=== PATIENT | female | born 1950 | race Caucasian/White ===

== ENCOUNTER 2016-05-12 17:57 | Inpatient (IN) | payer MEDICARE, BC ==
[~2016-05-12] VITALS: Ht 157.5 cm; Wt 67.1 kg
[~2016-05-12 17:57] MED LIST: MIRT15TA PO; SIMV40TA2 PO; TEMA15CA PO
[2016-05-12] MEDS ORDERED: CEFTRIAXONE 1GM BAG (ER ONLY) 50 ML IV ONE ×2 (20:00→20:01)
[2016-05-12] MEDS ORDERED: IV NS 0.9% 1,000 ML BAG IV ONE ×2 (20:00→23:00)
[2016-05-12] MEDS ORDERED: IV NS 0.9% 1,000 ML ONE (20:02)
[2016-05-12] MEDS ORDERED: IV SET PRIMARY 1 EA INFUS.SET MC ONE (20:02)
[2016-05-12 20:06] LABS: BASOPHILS # (AUTO) 0.3 /CMM (0.0-0.2); BASOPHILS % (AUTO) 3.2 % (0.0-2.0); DIFF TOTAL % 100 %; EOSINOPHILS # (AUTO) 0.2 /CMM (0.0-0.7); EOSINOPHILS % (AUTO) 1.9 % (0.0-6.0); HEMATOCRIT 42 % (33-45); HEMOGLOBIN 13.9 g/dL (11.5-14.8); LYMPHOCYTES # (AUTO) 2.2 /CMM (0.8-4.8); LYMPHOCYTES % (AUTO) 23.5 % (20.0-44.0); MEAN CORPUSCULAR HEMOGLOBIN 29 PG (26.0-33.0); MEAN CORPUSCULAR HGB CONC 33 g/dl (31.0-36.0); MEAN CORPUSCULAR VOLUME 87 fL (82-100); MONOCYTES # (AUTO) 0.9 /CMM (0.1-1.30); MONOCYTES % (AUTO) 9.7 % (2.0-12.0); NEUTROPHILS # (AUTO) 5.6 /CMM (1.8-8.9); NEUTROPHILS % (AUTO) 61.7 % (43.0-81.0); PLATELET COUNT (AUTO) 297 /CMM (150-450); RED BLOOD CELL COUNT(AUTO) 4.78 MIL/uL (4.0-5.2); WHITE BLOOD COUNT (AUTO) 9.2 K/uL (4.3-11.0)
[2016-05-12 20:14] LABS: CALCIUM, SERUM 8.8 mg/dL (8.5-10.1); CREATININE 0.9 mg/dL (0.6-1.3); POTASSIUM 3.6 mmol/L (3.5-5.1)
[2016-05-12 20:20] LABS: ALBUMIN 3.2 g/dL (3.4-5.0); BILIRUBIN,DIRECT 0.1 mg/dL (0.0-0.2); BILIRUBIN,TOTAL 0.3 mg/dL (0.2-1.0); INDIRECT BILIRUBIN 0.2 mg/dL (0.0-1.1); TOTAL PROTEIN, SERUM 7.5 g/dL (6.4-8.2)
[2016-05-12 20:54] LABS: KETONES,URINE Negative (NEGATIVE); LEUKOCYTE ESTERASE ,URINE Large (NEGATIVE); PH,URINE 6.5 (5.0-8.0)
[2016-05-12 21:04] LABS: ADD UA MICROSCOPIC YES
[2016-05-12 21:05] LABS: ADD URINE CULTURE YES; WBC,URINE TOO NUMEROUS TO COUN /HPF (0-3)
[2016-05-12 21:20] VITALS: BP 93/66
[2016-05-12] MEDS ORDERED: IV SET PRIMARY PUMP SET 1 EA INFUS.SET MC ONE (22:48)
[2016-05-12] MEDS ORDERED: MORPHINE SULFATE INJ 2 MG/ML DISP.SYRIN IV PRN (23:00)
[2016-05-12] MEDS ORDERED: ACETAMINOPHEN 325 MG TABLET PO PRN (23:00)
[2016-05-12] MEDS ORDERED: LORAZEPAM INJ 2 MG/ML VIAL IVP PRN (23:00)
[2016-05-12] MEDS ORDERED: ONDANSETRON HCL/PF 4 MG/2 ML VIAL IVP PRN (23:00)
[2016-05-12] MEDS ORDERED: ZOLPIDEM TARTRATE 5 MG TABLET PO PRN (23:00)
[2016-05-12] MEDS ORDERED: LEVOFLOXACIN 750 MG /D5W 150ML 150 ML IV ONE (23:04)
[2016-05-12] MEDS ORDERED: SECONDARY IV SET 1 EA INFUS.SET MC ONE (23:21)
[2016-05-12] MEDS: LEVOFLOXACIN 750 MG /D5W 150ML 150 ML IV SCH (23:21)
[2016-05-13] VITALS (7 sets, daily range): BP systolic 92–123; BP diastolic 52–70
[2016-05-13 00:44] LABS: ALANINE AMINOTRANSFERASE 16 U/L (12-78); ASPARTATE AMINOTRANSFERASE 12 U/L (15-37); BILIRUBIN,DIRECT 0.1 mg/dL (0.0-0.2); BILIRUBIN,TOTAL 0.3 mg/dL (0.2-1.0); INDIRECT BILIRUBIN 0.2 mg/dL (0.0-1.1); TOTAL PROTEIN, SERUM 7.1 g/dL (6.4-8.2)
[2016-05-13 00:53] LABS: LACTIC ACID 2.1 mmol/L (0.4-2.0)
[2016-05-13 01:25] LABS: *LACTIC ACID REFLEX FLAG YES
[2016-05-13 06:43] LABS: ALBUMIN 2.7 g/dL (3.4-5.0); BASOPHILS % (AUTO) 0.2 % (0.0-2.0); BILIRUBIN,TOTAL 0.4 mg/dL (0.2-1.0); CALCIUM, SERUM 8.2 mg/dL (8.5-10.1); CREATININE 0.8 mg/dL (0.6-1.3); DIFF TOTAL % 100 %; EOSINOPHILS # (AUTO) 0.1 /CMM (0.0-0.7); EOSINOPHILS % (AUTO) 1.6 % (0.0-6.0); HEMATOCRIT 41 % (33-45); HEMOGLOBIN 12.9 g/dL (11.5-14.8); LYMPHOCYTES # (AUTO) 0.8 /CMM (0.8-4.8); LYMPHOCYTES % (AUTO) 9.2 % (20.0-44.0); MEAN CORPUSCULAR HEMOGLOBIN 29 PG (26.0-33.0); MEAN CORPUSCULAR HGB CONC 32 g/dl (31.0-36.0); MEAN CORPUSCULAR VOLUME 92 fL (82-100); MONOCYTES # (AUTO) 0.6 /CMM (0.1-1.30); NEUTROPHILS # (AUTO) 6.8 /CMM (1.8-8.9); PLATELET COUNT (AUTO) 240 /CMM (150-450); POTASSIUM 3.7 mmol/L (3.5-5.1); RED BLOOD CELL COUNT(AUTO) 4.45 MIL/uL (4.0-5.2); TOTAL PROTEIN, SERUM 6.7 g/dL (6.4-8.2); WHITE BLOOD COUNT (AUTO) 8.3 K/uL (4.3-11.0)
[2016-05-13] MEDS ORDERED: MIRTAZAPINE 15 MG TABLET PO SCH (18:00)
[2016-05-13] MEDS: SIMVASTATIN 40 MG TABLET PO SCH ×2 (19:16→19:17)
[2016-05-14] MEDS ORDERED: IV SET PRIMARY PUMP SET 1 EA INFUS.SET MC ONE ×2 (00:15→00:16)
[2016-05-14] MEDS ORDERED: SECONDARY IV SET 1 EA INFUS.SET MC ONE (00:15)
[2016-05-14] MEDS ORDERED: IV NS 0.9% 250 ML IV ONE (00:15)
[2016-05-14] MEDS: LEVOFLOXACIN 750 MG /D5W 150ML 150 ML IV SCH (00:20)
[2016-05-14 06:48] LABS: BASOPHILS % (AUTO) 0.4 % (0.0-2.0); DIFF TOTAL % 100 %; EOSINOPHILS # (AUTO) 0.2 /CMM (0.0-0.7); EOSINOPHILS % (AUTO) 2.9 % (0.0-6.0); HEMATOCRIT 37 % (33-45); HEMOGLOBIN 12.1 g/dL (11.5-14.8); LYMPHOCYTES # (AUTO) 1.5 /CMM (0.8-4.8); MEAN CORPUSCULAR HEMOGLOBIN 29 PG (26.0-33.0); MEAN CORPUSCULAR HGB CONC 33 g/dl (31.0-36.0); MEAN CORPUSCULAR VOLUME 88 fL (82-100); MONOCYTES # (AUTO) 0.6 /CMM (0.1-1.30); MONOCYTES % (AUTO) 9.2 % (2.0-12.0); NEUTROPHILS # (AUTO) 4.4 /CMM (1.8-8.9); NEUTROPHILS % (AUTO) 65.5 % (43.0-81.0); PLATELET COUNT (AUTO) 267 /CMM (150-450); RED BLOOD CELL COUNT(AUTO) 4.22 MIL/uL (4.0-5.2); WHITE BLOOD COUNT (AUTO) 6.7 K/uL (4.3-11.0)
[2016-05-14 07:06] LABS: CALCIUM, SERUM 9.1 mg/dL (8.5-10.1); CREATININE 0.9 mg/dL (0.6-1.3); POTASSIUM 3.8 mmol/L (3.5-5.1)
[2016-05-14 08:00] VITALS: BP 93/61
[2016-05-14 16:00] VITALS: BP 108/68
== END 2016-05-14 17:00 | disposition home or self-care (01) | DRG 689 ==
LOC: ER 17:59 → TELE 21:03 → MED 05-13 08:30
PROVIDERS: ADMIT Internal Medicine; ATTEND Internal Medicine
DX: N39.0 Urinary tract infection, site not specified (principal); G92 Toxic encephalopathy; E43 Unspecified severe protein-calorie malnutrition; R53.2 Functional quadriplegia; C79.31 Secondary malignant neoplasm of brain; E44.0 Moderate protein-calorie malnutrition; E87.2 Acidosis; Z85.118 Personal history of other malignant neoplasm of bronchus and lung; Z85.3 Personal history of malignant neoplasm of breast; Z92.3 Personal history of irradiation; Z87.440 Personal history of urinary (tract) infections; E78.5 Hyperlipidemia, unspecified; Z87.891 Personal history of nicotine dependence; G30.9 Alzheimer's disease, unspecified; F02.80 Dementia in other diseases classified elsewhere, unspecified severity, without behavioral disturbance, psychotic disturbance, mood disturbance, and anxiety
CPT/HCPCS: 36415; 71010-TC; 80048-TC; 80053-TC; 80076-TC; 81000-TC; 83605-TC; 83690-TC; 85025-TC; 87040-TC; 87081-TC; 87086-TC; 93307-TC; 97001-TC; 97003-TC; 97116-TC; 97530-TC; A4606; J0696; J1956; J7030; J7050; Z7610

== ENCOUNTER 2016-11-03 09:40 | Outpatient (CLI) | payer MEDICARE, BC ==
[2016-11-03] MEDS ORDERED: ETHYL CHLORIDE SPRAY 1 EA BOTTLE TP ONE (11:30)
== END 2016-11-03 23:59 | disposition home health service (06) ==
LOC: WOU 09:40
PROVIDERS: ATTEND Podiatrist Foot & Ankle Surgery
DX: L60.0 Ingrowing nail (principal); R60.0 Localized edema; L03.032 Cellulitis of left toe
CPT/HCPCS: 11730; A6402; J3490

== ENCOUNTER 2016-11-13 10:03 | Outpatient (CLI) | payer MEDICARE, BC | END 2016-11-13 23:59 | disposition home or self-care (01) | LOC: WOU 10:03 | PROVIDERS: ATTEND Podiatrist Foot & Ankle Surgery | DX: Z09 Encounter for follow-up examination after completed treatment for conditions other than malignant neoplasm (principal); Z99.3 Dependence on wheelchair | CPT/HCPCS: G0463 ==

== ENCOUNTER 2016-11-22 11:15 | Emergency (ER) | payer MEDICARE, BC ==
[~2016-11-22] VITALS: Ht 160 cm; Wt 68.0 kg
--- NOTE | 2016-11-22 11:20 | NUR ---
BIBCG FROM HOME FOR PAIN IN URINATION SINCE WEDNESDAY. DENIES HEMATURIA HOWEVER SHE REPORTED HAVING CLOUDY URINE. PATIENT IS AEBRILE AT THIS TIME. IN NO APPARENT DISTRESS. GOWNED PT AND PLACED ON TELE MONITOR. VSS
[2016-11-22] MEDS ORDERED: ONDANSETRON HCL/PF 4 MG/2 ML VIAL ONE (11:38)
[2016-11-22] MEDS ORDERED: PHENAZOPYRIDINE HCL 200 MG TABLET ONE (11:39)
--- NOTE | 2016-11-22 11:53 | NUR ---
RADIOLOGIST AT FOR BLOOD DRAW
--- NOTE | 2016-11-22 11:53 | NUR ---
IV ACCESS STARTED. PT MEDICATED ORDERED.
[2016-11-22] MEDS ORDERED: ONDANSETRON HCL/PF 4 MG/2 ML VIAL IVP ONE (12:00)
[2016-11-22] MEDS ORDERED: IV NS 0.9% 1,000 ML BAG IV ONE (12:00)
[2016-11-22] MEDS ORDERED: PHENAZOPYRIDINE HCL 200 MG TABLET PO ONE (12:00)
--- NOTE | 2016-11-22 12:12 | NUR ---
URINE SAMPLE SENT TO LAB
[2016-11-22 12:13] LABS: BASOPHILS # (AUTO) 0.1 /CMM (0.0-0.2); BASOPHILS % (AUTO) 1.1 % (0.0-2.0); EOSINOPHILS # (AUTO) 0.1 /CMM (0.0-0.7); EOSINOPHILS % (AUTO) 1.9 % (0.0-6.0); HEMATOCRIT 43 % (33-45); HEMOGLOBIN 14.3 g/dL (11.5-14.8); LYMPHOCYTES # (AUTO) 1.5 /CMM (0.8-4.8); LYMPHOCYTES % (AUTO) 20.2 % (20.0-44.0); MEAN CORPUSCULAR HEMOGLOBIN 29 PG (26.0-33.0); MEAN CORPUSCULAR HGB CONC 33 g/dl (31.0-36.0); MEAN CORPUSCULAR VOLUME 89 fL (82-100); MONOCYTES # (AUTO) 0.7 /CMM (0.1-1.30); MONOCYTES % (AUTO) 9.3 % (2.0-12.0); NEUTROPHILS # (AUTO) 5.1 /CMM (1.8-8.9); NEUTROPHILS % (AUTO) 67.5 % (43.0-81.0); PLATELET COUNT (AUTO) 322 /CMM (150-450); RDW COEFFICIENT OF VARIATION 14.2 (11.5-15.0); RED BLOOD CELL COUNT(AUTO) 4.88 MIL/uL (4.0-5.2); WHITE BLOOD COUNT (AUTO) 7.5 K/uL (4.3-11.0)
[2016-11-22 12:25] LABS: CALCIUM, SERUM 8.8 mg/dL (8.5-10.1); POTASSIUM 3.7 mmol/L (3.5-5.1)
[2016-11-22 12:30] LABS: ALBUMIN 3.2 g/dL (3.4-5.0); BILIRUBIN,DIRECT 0.1 mg/dL (0.0-0.2); BILIRUBIN,TOTAL 0.4 mg/dL (0.2-1.0); TOTAL PROTEIN, SERUM 7.3 g/dL (6.4-8.2)
[2016-11-22 12:40] LABS: APPEARANCE,URINE Clear (CLEAR); BILIRUBIN,URINE Negative (NEGATIVE); BLOOD, URINE Moderate Ery/uL (NEGATIVE); COLOR,URINE Yellow (YELLOW); KETONES,URINE Negative (NEGATIVE); LEUKOCYTE ESTERASE ,URINE Moderate (NEGATIVE); NITRITE, URINE Positive (NEGATIVE); PROTEIN,URINE >=300 mg/dl (NEGATIVE); UGLUCOSE Negative (NEGATIVE); UROBILINOGEN,URINE 0.2 EU/dL (0.2)
[2016-11-22 12:48] LABS: BACTERIA,URINE Many /HPF (None Seen); SQUAMOUS EPITHELIAL CELL,UR Few /HPF (None Seen); WBC,URINE 21-50 /HPF (0-3)
[2016-11-22] MEDS ORDERED: CEFTRIAXONE 1 G in IV D5W 50 ML IV ONE (13:00)
[2016-11-22] MEDS ORDERED: CEFTRIAXONE 1GM BAG (ER ONLY) 50 ML IV ONE (13:01)
[2016-11-22 13:19] VITALS: BP 104/72
--- NOTE | 2016-11-22 13:21 | NUR ---
Patient discharged to home in stable condition. Written and verbal after care instructions given. Patient verbalizes understanding of instruction.
[2016-11-23] MEDS ORDERED: DIPH25CA83 PO (11:45)
[2016-11-23] MEDS ORDERED: FAMO-131 PO (11:45)
[2016-11-23] MEDS ORDERED: CIPR-262 PO (11:45)
[2016-11-23] MEDS ORDERED: METH4TAB16 PO (11:45)
== END 2016-11-22 13:21 | disposition home or self-care (01) ==
LOC: ER 11:19
DX: N39.0 Urinary tract infection, site not specified (principal); F03.90 Unspecified dementia, unspecified severity, without behavioral disturbance, psychotic disturbance, mood disturbance, and anxiety; E78.00 Pure hypercholesterolemia, unspecified; Z91.048 Other nonmedicinal substance allergy status
CPT/HCPCS: 36415; 80048; 80076; 81001; 85025; 87077; 87086; 87186; 96361; 96365; 99284; A4606; J0696 ×2; J2405; J7030; J7060; 81000-TC; Z7610

== ENCOUNTER 2016-11-22 15:49 | Inpatient (IN) | payer MEDICARE, BC ==
[~2016-11-22] VITALS: Ht 162.6 cm; Wt 62.8 kg
--- NOTE | 2016-11-22 15:52 | NUR ---
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 PATIENT ALSO CO DIFFICULTY SWALLOWING. PER PATIENT SHE DID NOT EAT NOTR DRINK PRIOR THE INCIDENT. PT WAS IN ED EARLIER AND WAS MEDICATED FOR UTI. PATIENT IS ABLE TO SPEAK IN FULL SENTENCE AND IS SATING 95% ON ROOM AIR. APPEARS IN NO APPARENT DISTRESS. GOWNED PT AND PLACED ON TELE MONITOR. VSS
--- NOTE | 2016-11-22 16:08 | NUR ---
MD MANCERA AT BEDSIDE
[2016-11-22] MEDS ORDERED: FAMOTIDINE/PF INJ 20 MG/2 ML VIAL IV ONE ×3 (16:13→20:57)
[2016-11-22] MEDS ORDERED: methylPREDNISolone SOD SUCC 125 MG/2ML VIAL ONE (16:13)
[2016-11-22] MEDS ORDERED: diphenhydrAMINE HCL 50 MG/ML VIAL ONE ×2 (16:13→20:50)
--- NOTE | 2016-11-22 16:20 | NUR ---
MEDICATED PT ORDERED
[2016-11-22] MEDS ORDERED: methylPREDNISolone SOD SUCC 125 MG/2ML VIAL IV ONE (16:30)
[2016-11-22] MEDS ORDERED: diphenhydrAMINE HCL 50 MG/ML VIAL IV ONE (16:30)
--- NOTE | 2016-11-22 17:43 | NUR ---
RELATIVE TO TIA_ WESTLEY-- [phone]
[2016-11-22] MEDS ORDERED: CIPROFLOXACIN IV RTU 400 MG in PREMIX 1 EA IV STA (17:54)
[2016-11-22] MEDS ORDERED: CIPROFLOXACIN IV RTU 200 ML IV ONE (18:01)
--- NOTE | 2016-11-22 19:43 | NUR ---
REPORT GIVEN TO ARLEN KONG FOR CONTINUITY OF CARE
--- NOTE | 2016-11-22 19:46 | NUR ---
PT TRANSPPORTED TO TELE 1. VSS
--- NOTE | 2016-11-22 19:50 | NUR ---
RN MS INITIAL NOTE PT RECEIVED FROM ER WITH NO ACUTE DISTRESS. A/O X3 WITH SOME LANGUAGE BARRIER AT TIMES. PT ON RA WITH ADEQUATE 02 SATURATION. PT HAS LFA 20G THAT HURTS WHEN FLUSHED SO RIGHT WRIST 20G STARTED FOR MEDICATION USE. PT IS ABLE TO MAKE NEEDS KNOWN. SAFETY AND COMFORT MEASURES TO BE ENSURED AND WILL CONTINUE TO MONITOR FOR ANY CHANGES.
[2016-11-22 20:00] VITALS: BP 100/66
[2016-11-22] MEDS ORDERED: MAGNESIUM HYDROXIDE 30 ML UDC PO PRN (20:00)
[2016-11-22] MEDS ORDERED: ONDANSETRON HCL/PF 4 MG/2 ML VIAL IVP PRN (20:00)
[2016-11-22] MEDS ORDERED: ENOXAPARIN SODIUM 40 MG/0.4 ML DISP.SYRIN SQ SCH (20:00)
[2016-11-22] MEDS ORDERED: HYDROCODONE/APAP 5/325MG 1 EACH TABLET PO PRN (20:00)
[2016-11-22] MEDS ORDERED: ZOLPIDEM TARTRATE 5 MG TABLET PO PRN (20:00)
[2016-11-22] MEDS ORDERED: ACETAMINOPHEN 325 MG TABLET PO PRN (20:00)
[2016-11-22] MEDS ORDERED: Z GUARD REMEDY 2 OZ OINT TP PRN (20:00)
[2016-11-22 20:29] VITALS: BP 100/66
[2016-11-22] MEDS ORDERED: TEMAZEPAM 15 MG CAPSULE PO PRN (20:30)
[2016-11-22] MEDS ORDERED: ENOXAPARIN SODIUM 40 MG/0.4 ML DISP.SYRIN SQ ONE (20:51)
[2016-11-22] MEDS ORDERED: FAMOTIDINE (20 MG) 20 MG TABLET ONE (20:52)
[2016-11-22] MEDS ORDERED: methylPREDNISolone SOD SUCC 40 MG/ML VIAL ONE (21:00)
[2016-11-22] MEDS: methylPREDNISolone SOD SUCC 40 MG/ML VIAL IV SCH (21:22)
[2016-11-22] MEDS: FAMOTIDINE/PF INJ 20 MG/2 ML VIAL IV SCH (21:23)
[2016-11-22] MEDS: diphenhydrAMINE HCL 50 MG/ML VIAL IV SCH (21:24)
[2016-11-22 21:50] VITALS: BP 100/66
[2016-11-23] MEDS ORDERED: diphenhydrAMINE HCL 50 MG/ML VIAL ONE (02:33)
[2016-11-23] MEDS: diphenhydrAMINE HCL 50 MG/ML VIAL IV SCH ×4 (02:37→21:05)
[2016-11-23 04:00] VITALS: BP 100/59
[2016-11-23] MEDS ORDERED: methylPREDNISolone SOD SUCC 40 MG/ML VIAL ONE (04:12)
[2016-11-23] MEDS: methylPREDNISolone SOD SUCC 40 MG/ML VIAL IV SCH ×3 (04:17→21:04)
[2016-11-23] MEDS ORDERED: CIPROFLOXACIN IV RTU 200 ML IV ONE (04:46)
[2016-11-23] MEDS: CIPROFLOXACIN IV RTU 400 MG in PREMIX 1 EA IV SCH ×2 (05:22→17:14)
--- NOTE | 2016-11-23 07:00 | NUR ---
RN NOTE RECEIVED PT ON BED, A/O X2 WITH PERIODS OF CONFUSION ,ABLE TO MAKE NEEDS KNOWN, ON RA NO SOB NOTED, RESPIRATION EVEN AND UNLABORED, R WRIST IV G 22 AND L FA IV G 20 SITES CDI,SR UP x3, CALL LIGHT WITHIN EASY REACH, BED LOCKED AND IN LOWEST POSITION ,CONTINUE TO MONITOR PT CLOSELY AND NOTIFY MD FOR ANY SIGNIFICANT CHANGES .
[2016-11-23 07:35] LABS: CALCIUM, SERUM 9.1 mg/dL (8.5-10.1); CREATININE 0.8 mg/dL (0.6-1.3); MAGNESIUM 1.8 mg/dL (1.8-2.4); PHOSPHORUS 2.9 mg/dL (2.5-4.9); POTASSIUM 4.3 mmol/L (3.5-5.1)
[2016-11-23 07:39] LABS: BASOPHILS % (AUTO) 0.2 % (0.0-2.0); HEMATOCRIT 42 % (33-45); HEMOGLOBIN 13.7 g/dL (11.5-14.8); LYMPHOCYTES # (AUTO) 1.2 /CMM (0.8-4.8); LYMPHOCYTES % (AUTO) 14.2 % (20.0-44.0); MEAN CORPUSCULAR HEMOGLOBIN 29 PG (26.0-33.0); MEAN CORPUSCULAR HGB CONC 33 g/dl (31.0-36.0); MEAN CORPUSCULAR VOLUME 89 fL (82-100); MONOCYTES # (AUTO) 0.1 /CMM (0.1-1.30); MONOCYTES % (AUTO) 0.7 % (2.0-12.0); NEUTROPHILS # (AUTO) 7.5 /CMM (1.8-8.9); NEUTROPHILS % (AUTO) 84.9 % (43.0-81.0); PLATELET COUNT (AUTO) 301 /CMM (150-450); RED BLOOD CELL COUNT(AUTO) 4.67 MIL/uL (4.0-5.2); WHITE BLOOD COUNT (AUTO) 8.8 K/uL (4.3-11.0)
[2016-11-23 08:00] VITALS: BP 108/66
[2016-11-23] MEDS: FAMOTIDINE/PF INJ 20 MG/2 ML VIAL IV SCH ×2 (08:10→21:04)
[2016-11-23] MEDS ORDERED: METH4TAB16 PO (11:45)
[2016-11-23] MEDS ORDERED: FAMO-131 PO (11:45)
[2016-11-23] MEDS ORDERED: CIPR-262 PO (11:45)
[2016-11-23] MEDS ORDERED: DIPH25CA83 PO (11:45)
--- NOTE | 2016-11-23 12:00 | NUR ---
RN NOTES PT STABLE, NO DISTRESS NOTED, CONTINUE TO MONITOR .
[2016-11-23 16:00] VITALS: BP 106/63
[2016-11-23] MEDS: SIMVASTATIN 40 MG TABLET PO SCH (17:21)
[2016-11-23] MEDS: MIRTAZAPINE 15 MG TABLET PO SCH (17:21)
--- NOTE | 2016-11-23 18:31 | NUR ---
RN NOTES PT AT REST ,RESPIRATION EVEN AND UNLABORED, ON RA , NO DISTRESS NOTED, PLEASANTLY CONFUSED , DARKLIGHT INSPECTOR AT THE BEDSIDE. BED ALARM ON FOR SAFETY PRECAUTION ,CALL LIGHT WITHIN EASY REACH, SR UP X3, NO SIGNIFICANT CHANGES NOTED ON THIS SHIFT, WILL ENDORSE TO SHOWROOM SALES CONSULTANT NURSE FOR CONTINUITY OF CARE .
--- NOTE | 2016-11-23 19:35 | NUR ---
RN MS INITIAL NOTE PT RECEIVED IN NO ACUTE DISTRESS. PT IS A/O X2/3 WITH CONFUSION DUE TO DEMENTIA. PT HAD A ABD IV LINE IN LEFT FA 20G THAT I D/C. PT HAS A R WRIST 22G THAT WAS PLACED LAST NIGHT THAT IS CLEAN DRY AND INTACT. CAREGIVER WAS AT BEDSIDE AND STATED TO CALL IF ANYTHING NEEDED [phone] [facility]. WILL ENSURE SAFETY AND COMFORT MEASURES DURING THE SHIFT.
[2016-11-23 20:00] VITALS: BP 124/75
[2016-11-23] MEDS: ENOXAPARIN SODIUM 40 MG/0.4 ML DISP.SYRIN SQ SCH (21:04)
[2016-11-24] MEDS: diphenhydrAMINE HCL 50 MG/ML VIAL IV SCH ×2 (02:32→08:23)
[2016-11-24 04:00] VITALS: BP 115/78
[2016-11-24] MEDS: methylPREDNISolone SOD SUCC 40 MG/ML VIAL IV SCH (04:20)
[2016-11-24] MEDS: CIPROFLOXACIN IV RTU 400 MG in PREMIX 1 EA IV SCH ×2 (05:17→17:34)
--- NOTE | 2016-11-24 06:18 | NUR ---
RN MS CLOSING NOTE PT REMAINS IN NO ACUTE DISTRESS. PT PULLED IV LINE ON RIGHT WRIST OUT AND A NEW LINE ON LEFT HAND 20G WAS PLACED. PT IS CONFUSED DUE TO DEMENTIA. ALL DUE MEDICATIONS WERE TOLERATED WELL AND GIVEN ORDERED. WILL ENDORSE CARE TO AM NURSE.
[2016-11-24 07:05] LABS: HEMATOCRIT 40 % (33-45); HEMOGLOBIN 13.2 g/dL (11.5-14.8); LYMPHOCYTES # (AUTO) 0.9 /CMM (0.8-4.8); LYMPHOCYTES % (AUTO) 6.7 % (20.0-44.0); MEAN CORPUSCULAR HEMOGLOBIN 30 PG (26.0-33.0); MEAN CORPUSCULAR HGB CONC 33 g/dl (31.0-36.0); MEAN CORPUSCULAR VOLUME 89 fL (82-100); MONOCYTES # (AUTO) 0.3 /CMM (0.1-1.30); MONOCYTES % (AUTO) 2.2 % (2.0-12.0); NEUTROPHILS # (AUTO) 12.8 /CMM (1.8-8.9); NEUTROPHILS % (AUTO) 91.1 % (43.0-81.0); PLATELET COUNT (AUTO) 319 /CMM (150-450); RDW COEFFICIENT OF VARIATION 15.6 (11.5-15.0); RED BLOOD CELL COUNT(AUTO) 4.45 MIL/uL (4.0-5.2); WHITE BLOOD COUNT (AUTO) 14.1 K/uL (4.3-11.0)
--- NOTE | 2016-11-24 07:18 | NUR ---
MS RN INITIAL NOTES: REC'D PT AWAKE ON BED, NOT IN ANY FORM OF DISTRESS, A/O X2 W/ CONFUSION. ON ROOM AIR, SATURATING 95%. HAS LEFT HAND G22, SL, FLUSHED, PATENT & INTACT, W/ NO S/SX OF INFECTION/ INFILTRATION NOTED. PROVIDED COMFORT & SAFETY MEASURES. CALL LIGHT PLACED W/IN EASY REACH. BED KEPT LOW & IN LOCKED POS. WILL CONTINUE TO MONITOR.
[2016-11-24 07:35] LABS: CALCIUM, SERUM 8.8 mg/dL (8.5-10.1); CREATININE 0.9 mg/dL (0.6-1.3); MAGNESIUM 1.9 mg/dL (1.8-2.4); PHOSPHORUS 2.5 mg/dL (2.5-4.9)
[2016-11-24 08:00] VITALS: BP 112/70
[2016-11-24] MEDS: FAMOTIDINE/PF INJ 20 MG/2 ML VIAL IV SCH ×2 (08:23→20:48)
--- NOTE | 2016-11-24 10:00 | NUR ---
RN NOTES: PT SEEN & EXAMINED BY DR. WARE W/ ORDERS TO DC SOLUMEDROL IV AND BENADRYL IV.
[2016-11-24 16:00] VITALS: BP 110/74
[2016-11-24] MEDS: MIRTAZAPINE 15 MG TABLET PO SCH (17:34)
[2016-11-24] MEDS: SIMVASTATIN 40 MG TABLET PO SCH (17:34)
--- NOTE | 2016-11-24 18:44 | NUR ---
MS RN CLOSING NOTES: NO ACUTE CHANGES NOTED W/IN SHIFT. PT STILL W/ PERIODS OF CONFUSION. TOLERATED ROOM AIR, NO SOB. HAS LEFT HAND G22 AND KAREY MIDLINE, SL, FLUSHED, PATENT & INTACT, W/ NO S/SX OF INFECTION/ INFILTRATION NOTED. KEPT WELL RESTED. NEEDS ATTENDED. CAREGIVER AT BEDSIDE. CALL LIGHT PLACED W/IN EASY REACH. BED KEPT LOW & IN LOCKED POS. WILL ENDORSE TO PM RN FOR SURINDER.
--- NOTE | 2016-11-24 19:30 | NUR ---
RN MS INITIAL NOTE PT RECEIVED IN NO ACUTE DISTRESS. PT HAS CAREGIVER(WESTLEY)/FAMILY AT BEDSIDE. PT IS A/O X2/3 CONFUSED. PT HAS LEFT HAND 22G IV AND KAREY MIDLINE THAT WAS PLACED TODAY. COMFORT AND SAFETY MEASURES TO BE ENSURED DURING THE SHIFT. WILL CONTINUE TO MONITOR FOR CHANGES.
[2016-11-24 19:48] VITALS: BP 117/73
[2016-11-24] MEDS: ENOXAPARIN SODIUM 40 MG/0.4 ML DISP.SYRIN SQ SCH (20:49)
--- NOTE | 2016-11-24 22:52 | NUR ---
RN NOTE AMBIEN 5MG GIVEN AT 2205. WILL MONITOR
[2016-11-25 04:00] VITALS: BP 115/73
[2016-11-25 04:59] VITALS: BP 115/73
[2016-11-25] MEDS: CIPROFLOXACIN IV RTU 400 MG in PREMIX 1 EA IV SCH (05:10)
--- NOTE | 2016-11-25 06:15 | NUR ---
RN MS CLOSING NOTE PT REMAINS IN NO ACUTE DISTRESS. PT HAS BEEN SLEEPING SINCE RECEIVING AMBIEN AT 2200. ALL DUE MEDICATIONS CARRIED OUT AND TOLERATED. VITALS WNL. COMFORT AND SAFETY MEASURES ENSURED DURING THE SHIFT. WILL ENDORSE CARE TO AM NURSE.
[2016-11-25 06:37] LABS: BASOPHILS % (AUTO) 0.1 % (0.0-2.0); HEMATOCRIT 39 % (33-45); HEMOGLOBIN 13.2 g/dL (11.5-14.8); LYMPHOCYTES # (AUTO) 1.7 /CMM (0.8-4.8); MEAN CORPUSCULAR HEMOGLOBIN 30 PG (26.0-33.0); MEAN CORPUSCULAR HGB CONC 34 g/dl (31.0-36.0); MEAN CORPUSCULAR VOLUME 87 fL (82-100); MONOCYTES # (AUTO) 0.8 /CMM (0.1-1.30); MONOCYTES % (AUTO) 8.6 % (2.0-12.0); NEUTROPHILS # (AUTO) 6.6 /CMM (1.8-8.9); NEUTROPHILS % (AUTO) 72.3 % (43.0-81.0); PLATELET COUNT (AUTO) 260 /CMM (150-450); RED BLOOD CELL COUNT(AUTO) 4.49 MIL/uL (4.0-5.2); WHITE BLOOD COUNT (AUTO) 9.1 K/uL (4.3-11.0)
[2016-11-25 07:29] LABS: CALCIUM, SERUM 8.4 mg/dL (8.5-10.1); CREATININE 1.1 mg/dL (0.6-1.3); POTASSIUM 3.6 mmol/L (3.5-5.1)
--- NOTE | 2016-11-25 07:30 | NUR ---
RN NOTES RECEIVED PATIENT IN BED ALERT, AWAKE, ORIENTED X 2-3 WITH PERIODS OF CONFUSION. BREATHING IS NORMAL, EVEN AND UNLABORED. NO SOB NOTED. ON ROOM AIR. SATURATING WELL. NO ACUTE DISTRESS NOTED. KAREY MIDLINE IS PATENT AND INTACT. KEPT CLEAN, DRY AND COMFORTABLE. ALL NEEDS ATTENDED. SAFETY MEASURE OBSERVED. CALL LIGHT WITH IN REACH. WILL CONT TO MONITOR.
[2016-11-25 08:00] VITALS: BP 115/47
[2016-11-25] MEDS: FAMOTIDINE/PF INJ 20 MG/2 ML VIAL IV SCH ×2 (08:59→21:49)
[2016-11-25 16:00] VITALS: BP_SYST 113; BP_SYST 118; BP_DIAS 76
--- NOTE | 2016-11-25 17:25 | NUR ---
RN NOTES PATIENT NOTED WITH ALMOST SYNCOPE EPISODE AND VERY LOOSE BM X2. V/S CHECKED, BP=79/54, HR =107. RESP 20, SATURATION=96%. CALLED DR WARE AND RECEIVED ORDER TO GIVE NS BOLUS 500CC AND TO STOP CIPRO IV. ORDER NOTED AND CARRIED OUT. WILL CONT TO MONITOR.
[2016-11-25] MEDS ORDERED: IV NS 0.9% 500 ML IV ONE (17:30)
--- NOTE | 2016-11-25 18:00 | NUR ---
RN NOTES V/S RECHECKED BP= 109/64, MV=804, RESP= 20, O2 SATURATION 96% ON ROOM AIR. CALLED DR WARE AND MADE AWARE AND RECEIVED ORDER TO HOLD D/C TODAY. ORDER NOTED AND CARRIED OUT. WILL CONT TO MONITOR.
[2016-11-25] MEDS: SIMVASTATIN 40 MG TABLET PO SCH (18:24)
[2016-11-25] MEDS: MIRTAZAPINE 15 MG TABLET PO SCH (18:24)
--- NOTE | 2016-11-25 19:25 | NUR ---
RN NOTES RECEIVED PATIENT IN BED AWAKE, ALERT/ORIENTED X3 WITH PERIODS OF CONFUSION CAREGIVER AT BEDSIDE. PT IS VERBALLY RESPONSIVE. RESPIRATION IS EVEN AND UNLABORED. NO SOB NOTED. NO ACUTE DISTRESS NOTED. OXYGEN SATURATION IS 96 % ON RA . KAREY MIDLINE IS PATENT AND INTACT, NO INFILTRATION NOTED NOR S/S OF INFECTION NOTED. DENIES ANY PAIN OR DISCOMFORT AT THIS TIME. SAFETY PRECAUTIONS OBSERVED. CALL LIGHT WITH IN REACH. BED ON LOWEST LEVEL. ALL NEEDS ATTENDED AND MET. WILL CONT TO MONITOR.
--- NOTE | 2016-11-25 19:33 | NUR ---
RN NOTES PATIENT ENDORSED TO NEXT SHIFT IN STABLE CONDITION FOR CONTINUITY OF CARE.
[2016-11-25 20:00] VITALS: BP 107/63
[2016-11-25] MEDS ORDERED: CIPROFLOXACIN HCL 250 MG TABLET PO SCH (21:00)
[2016-11-25] MEDS: ENOXAPARIN SODIUM 40 MG/0.4 ML DISP.SYRIN SQ SCH (21:54)
--- NOTE | 2016-11-26 02:39 | NUR ---
PT IN BED, RESTING COMFORTABLY AT THIS TIME. AROUSES EASILY. NO DISTRESS, NO SOB NOTED. RESPIRATION IS EVEN AND UNLABORED. NO C/O PAIN OR DISCOMFORT AT THIS TIME. SAFETY PRECAUTIONS OBSERVED. WILL CONTINUE TO MONITOR.
[2016-11-26 04:00] VITALS: BP 103/64
--- NOTE | 2016-11-26 06:38 | NUR ---
RN NOTES PATIENT IN BED RESTING COMFORTABLY AT THIS TIME. ALERT/ORIENTED X3 WITH PERIODS OF CONFUSION, VERBALLY RESPONSIVE. RESPIRATION IS EVEN AND UNLABORED. NO SOB NOTED. NO ACUTE DISTRESS NOTED. OXYGEN SATURATION IS 96 % ON RA . KAREY MIDLINE IS PATENT AND INTACT, NO INFILTRATION NOTED NOR S/S OF INFECTION NOTED. DENIES ANY PAIN OR DISCOMFORT AT THIS TIME. SAFETY PRECAUTIONS OBSERVED. CALL LIGHT WITH IN REACH. BED ON LOWEST LEVEL. ALL NEEDS ATTENDED AND MET. WILL ENDORSE TO NEXT SHIFT FOR SURINDER.
--- NOTE | 2016-11-26 07:05 | NUR ---
MS RN NOTE: RECEIVED PT RESTING COMFORTABLY IN BED AND EASILY AWAKEN TO NAME. PT IS A&OX3 WITH PERIODS OF CONFUSION, DENIES PAIN. ON RA, RESPIRATIONS EVEN AND UNLABORED WITH NO SOB NOTED. KAREY MIDLINE #18 INTACT AND PATENT. BED LOW, LOCKED WITH CALL LIGHT WITHIN REACH. WILL CONT TO MONITOR.
[2016-11-26 08:00] VITALS: BP 103/73
[2016-11-26] MEDS: FAMOTIDINE/PF INJ 20 MG/2 ML VIAL IV SCH (08:11)
[2016-11-26 09:00] VITALS: BP 103/73
--- NOTE | 2016-11-26 10:10 | NUR ---
MS RN NOTE: PER XR TECH, CT HEAD W/CONTRAST NPO STATUS FOR 4 HOURS. CONSENT SIGNED BY CAREGIVER WESTLEY KAPADIA AT BEDSIDE. GAMING CAGE CASHIER AROUND 1430.
--- NOTE | 2016-11-26 14:10 | NUR ---
MS RN NOTE: PT EVAL AT BEDSIDE. ORTHOSTATIC PRESSURE DONE: 97/63 SUPINE, 89/54 SITTING, 101/59 STANDING. PER PT EVAL 20 FT AMBULATORY WITH WALKER, UNSTEADY GAIT AND FALL RISK.
[2016-11-26 16:00] VITALS: BP 94/65
--- NOTE | 2016-11-26 16:35 | NUR ---
MS RN NOTE: PT TAKEN TO CT SCAN.
[2016-11-26] MEDS ORDERED: CT SWABBABLE VALVE TRANS SET 1 EA INFUS.SET MC ONE (16:42)
[2016-11-26] MEDS ORDERED: IV NS 0.9% 250 ML IV ONE (16:42)
[2016-11-26] MEDS ORDERED: IOHEXOL-300 100 ML VIAL IV ONE (16:42)
[2016-11-26 17:00] VITALS: BP 94/65
--- NOTE | 2016-11-26 17:00 | NUR ---
MS RN NOTE: PT BACK FROM CT SCAN. PT WILL EAT AND RECHECK VITALS.
[2016-11-26] MEDS: SIMVASTATIN 40 MG TABLET PO SCH (18:00)
[2016-11-26] MEDS: MIRTAZAPINE 15 MG TABLET PO SCH (18:00)
--- NOTE | 2016-11-26 18:13 | NUR ---
MS RN NOTE: VS: 97.9 TEMP, 105 HR, 20 RR, 93% O2SAT, 106/53 BP, DENIES PAIN. REVIEWED WITH CHARGE NURSE AND OK TO DC ORDERED.
--- NOTE | 2016-11-26 19:00 | NUR ---
MS RN NOTE: NO ACUTE CHANGES DURING SHIFT. PT A&OX3 WITH PERIODS OF CONFUSION, DENIED PAIN. ORDERS CARRIED OUT. BED LOW, LOCKED WITH CALL LIGHT WITHIN REACH. ADMINISTRATIVE SALES ASSISTANT AT BEDSIDE AWAITING D/C. WILL ENDORSE TO [employer] PLANT OPERATOR NURSE FOR SURINDER.
--- NOTE | 2016-11-26 19:15 | NUR ---
MS RN NOTES PTS DISCHARGE HOME LEFT HOSPITAL IN STABLE CONDITION V/S STABLE AFEBRILE, ACCOMPANIED BY DAUGHTER,AND CAREGIVER VIA WHEELCHAIR, DISCHARGE INSTRUCTION , GIVEN BY RN DAY SHIFT MARY .
== END 2016-11-26 20:16 | disposition home or self-care (01) | DRG 915 ==
LOC: ER 15:51 → MEDSG1 19:36
PROVIDERS: ADMIT Internal Medicine; ATTEND Internal Medicine
PROC: 05H533Z Insertion of Infusion Device into Right Subclavian Vein, Percutaneous Approach (ICD-10-PCS; principal; 2016-11-24)
DX: T78.3XXA Angioneurotic edema, initial encounter (principal); R53.2 Functional quadriplegia; G93.41 Metabolic encephalopathy; E44.0 Moderate protein-calorie malnutrition; D68.59 Other primary thrombophilia; G90.8 Other disorders of autonomic nervous system; E88.09 Other disorders of plasma-protein metabolism, not elsewhere classified; N39.0 Urinary tract infection, site not specified; E78.5 Hyperlipidemia, unspecified; Z87.891 Personal history of nicotine dependence; Z92.3 Personal history of irradiation; Z85.841 Personal history of malignant neoplasm of brain; Z68.23 Body mass index [BMI] 23.0-23.9, adult; T36.1X5A Adverse effect of cephalosporins and other beta-lactam antibiotics, initial encounter; Y84.9 Medical procedure, unspecified as the cause of abnormal reaction of the patient, or of later complication, without mention of misadventure at the time of the procedure; Y92.009 Unspecified place in unspecified non-institutional (private) residence as the place of occurrence of the external cause; Z85.118 Personal history of other malignant neoplasm of bronchus and lung; Z87.440 Personal history of urinary (tract) infections; Z79.899 Other long term (current) drug therapy
CPT/HCPCS: 36415; 70460-TC; 71010-TC; 80048-TC; 80061-TC; 80076-TC; 81000-TC; 83735-TC; 84100-TC; 85025-TC; 87086-TC; 87186-TC; 93307-TC; 97110-TC; 97116-TC; 97530-TC; A4216; A4606; J0744; J1200; J1650; J2920; J2930; J3490; J7040; J7050; Q9967; Z7610

== ENCOUNTER 2017-01-11 09:38 | Outpatient (CLI) | payer MEDICARE, BC ==
[~2017-01-11 09:38] MED LIST changes: +CIPR-262 PO; +DIPH25CA83 PO; +FAMO-131 PO; +METH4TAB16 PO
== END 2017-01-11 23:59 | disposition home or self-care (01) ==
LOC: MRI 09:38
PROVIDERS: ATTEND Internal Medicine
DX: I67.82 Cerebral ischemia (principal); G93.89 Other specified disorders of brain
CPT/HCPCS: 70553; A9579 ×2

== ENCOUNTER 2017-04-26 12:33 | Inpatient (IN) | payer MEDICARE, BC ==
[~2017-04-26] VITALS: Ht 162.6 cm; Wt 64.4 kg
--- NOTE | 2017-04-26 12:40 | NUR ---
BB RA FROM HOME FOR SYNCOPE WHILE SEATING IN THE TOILET. NO TRAUMA, PATIENT IS AWAKE, ALERT AND ORIENTED, PT APPEARS IN NO DISTRESS. RESPIRATION EVEN AND UNLABORED. SKIN IS WARM TO TOUCH AND NON DIAPHORETIC, PATIENT IS AFEBRILE. VSS
[2017-04-26 13:00] LABS: BASOPHILS # (AUTO) 0.2 /CMM (0.0-0.2); BASOPHILS % (AUTO) 0.9 % (0.0-2.0); EOSINOPHILS # (AUTO) 0.2 /CMM (0.0-0.7); EOSINOPHILS % (AUTO) 1.2 % (0.0-6.0); HEMATOCRIT 44 % (33-45); LYMPHOCYTES # (AUTO) 2.5 /CMM (0.8-4.8); LYMPHOCYTES % (AUTO) 12.8 % (20.0-44.0); MEAN CORPUSCULAR HEMOGLOBIN 29 PG (26.0-33.0); MEAN CORPUSCULAR HGB CONC 34 g/dl (31.0-36.0); MEAN CORPUSCULAR VOLUME 86 fL (82-100); MONOCYTES # (AUTO) 1.1 /CMM (0.1-1.30); MONOCYTES % (AUTO) 5.9 % (2.0-12.0); NEUTROPHILS # (AUTO) 15.3 /CMM (1.8-8.9); NEUTROPHILS % (AUTO) 79.2 % (43.0-81.0); PLATELET COUNT (AUTO) 358 /CMM (150-450); RDW COEFFICIENT OF VARIATION 14.4 (11.5-15.0); RED BLOOD CELL COUNT(AUTO) 5.17 MIL/uL (4.0-5.2); WHITE BLOOD COUNT (AUTO) 19.3 K/uL (4.3-11.0)
[2017-04-26] MEDS ORDERED: IV NS 0.9% 500 ML BAG IV ONE (13:00)
[2017-04-26 13:11] LABS: CALCIUM, SERUM 9.4 mg/dL (8.5-10.1); CARBON DIOXIDE 26 mmol/L (21-32); CHLORIDE 103 mmol/L (98-107); CREATININE 1.1 mg/dL (0.6-1.3); GLUCOSE 125 mg/dL (74-106); POTASSIUM 3.6 mmol/L (3.5-5.1); SODIUM SERUM 138 mmol/L (136-145); UREA NITROGEN, BLOOD 13 mg/dL (7-18)
--- NOTE | 2017-04-26 13:15 | NUR ---
CAREGIVER AT BEDSIDE
[2017-04-26 13:16] LABS: ALANINE AMINOTRANSFERASE 15 U/L (12-78); ALBUMIN 3.4 g/dL (3.4-5.0); ALKALINE PHOSPHATASE 73 U/L (46-116); ASPARTATE AMINOTRANSFERASE 17 U/L (15-37); BILIRUBIN,DIRECT 0.1 mg/dL (0.0-0.2); BILIRUBIN,TOTAL 0.4 mg/dL (0.2-1.0); INR 0.94 (0.85-1.15); TOTAL PROTEIN, SERUM 7.9 g/dL (6.4-8.2)
[2017-04-26 13:18] LABS: TROPONIN I < 0.017 ng/mL (0.00-0.056)
--- NOTE | 2017-04-26 13:46 | NUR ---
[facility] PAGED, SUNITHA ANDRADE VOCATIONAL REHABILITATION SPECIALIST
[2017-04-26 13:52] LABS: APPEARANCE,URINE CLOUDY (CLEAR); BILIRUBIN,URINE NEGATIVE (NEGATIVE); BLOOD, URINE 3+ Ery/uL (NEGATIVE); COLOR,URINE YELLOW (YELLOW); KETONES,URINE NEGATIVE (NEGATIVE); LEUKOCYTE ESTERASE ,URINE 2+ (NEGATIVE); NITRITE, URINE POSITIVE (NEGATIVE); PROTEIN,URINE 3+ mg/dl (NEGATIVE); UGLUCOSE NEGATIVE (NEGATIVE); UROBILINOGEN,URINE 0.2 EU/dL (0.2)
--- NOTE | 2017-04-26 13:53 | NUR ---
CALLED NURSING SUP. FOR TELE BED
[2017-04-26] MEDS ORDERED: LEVOFLOXACIN 750 MG /D5W 150ML 150 ML IV ONE ×2 (13:57→14:00)
--- NOTE | 2017-04-26 14:05 | NUR ---
AVIATION MAINTENANCE INSTRUCTOR AT BEDSIDE FOR BLOOD CULTURE
[2017-04-26 14:16] LABS: BACTERIA,URINE Rare /HPF (None Seen); RBC,URINE TOO NUMEROUS TO COUN /HPF (0-2); SQUAMOUS EPITHELIAL CELL,UR Rare /HPF (None Seen); WBC,URINE TOO NUMEROUS TO COUN /HPF (0-3)
--- NOTE | 2017-04-26 14:17 | NUR ---
TELE 117-2
[2017-04-26 14:21] LABS: BAND % (MANUAL) 2 % (0.0-5.0); EOSINOPHILS % (MANUAL) 1 % (0-4); LYMPHOCYTES % (MANUAL) 11 % (16-48); MONOCYTES % (MANUAL) 10 % (0-11.0); NEUTROPHILS % (MANUAL) 76 (42-76)
--- NOTE | 2017-04-26 14:23 | NUR ---
REPORT GIVEN TO ARLEN STEVEN FOR SURINDER
--- NOTE | 2017-04-26 14:24 | NUR ---
PATIENT TRANSPORTED TO TELE. S
[2017-04-26] MEDS ORDERED: MAGNESIUM HYDROXIDE 30 ML UDC PO PRN ×2 (14:30→14:45)
[2017-04-26] MEDS ORDERED: MAG HYDROX/AL HYDROX/SIMETH 30 ML UDC PO PRN ×2 (14:30→14:45)
[2017-04-26] MEDS ORDERED: Z GUARD REMEDY 2 OZ OINT TP PRN ×2 (14:30→14:45)
[2017-04-26] MEDS ORDERED: LEVOFLOXACIN 750 MG /D5W 150ML 750 MG in PREMIX 1 EA IV SCH (14:30)
[2017-04-26] MEDS ORDERED: HYDROCODONE/APAP 5/325MG 1 EACH TABLET PO PRN ×2 (14:30→14:45)
[2017-04-26] MEDS ORDERED: ONDANSETRON HCL/PF 4 MG/2 ML VIAL IVP PRN ×2 (14:30→14:45)
[2017-04-26] MEDS ORDERED: ACETAMINOPHEN 325 MG TABLET PO PRN ×2 (14:30→14:45)
[2017-04-26 14:40] VITALS: BP 102/69
--- NOTE | 2017-04-26 14:45 | NUR ---
LOSS PREVENTION GUARD NOTES RECEIVED PATIENT FROM ER VIA PANCHORROGELIO FROM ARLEN RUIZ, PATIENT AOX3 WITH SOME DEMENTIA NOTED, CAREGIVER AT BEDSIDE, ON ROOM AIR NO DISTRESS NOTED, ON TELE MONITOR ST 118 HR, IV R AC 18G INFUSING ANTIBIOTICS, SKIN CHECKED AND INTACT, Q2H TURNING WITH MINIMAL ONE PERSON ASSIST, IN DIAPER, SMALL BOWEL MOVEMENT BROWN FORMED NOTED UPON ASSESSMENT, PATIENT STATES THAT SHE IS NOT DIZZY AT THIS TIME MOMENT BUT STILL DOES NOT FEEL WELL. BED IN LOW AND LOCKED POSITION CALL LIGHT WITHIN REACH, BELONGING LIST DONE AND NOTED, WILL CONTINUE TO MONITOR. WILL BE HAVING CT OF HEAD WO CONTRAST.
--- NOTE | 2017-04-26 15:15 | NUR ---
DELI CLERK NOTES LAB CALLED WITH LACTIC ACID 2.4 TOBACCO STEMMER LUPE NOTIFIED, NEW ORDERS TO RECHECK LACTIC ACID FLUIDS ALREADY GIVEN IN ER. ORDERS CARRIED OUT.
[2017-04-26 16:00] VITALS: BP 98/56
--- NOTE | 2017-04-26 17:31 | NUR ---
FLARER NOTES PATIENT BEING TAKEN TO CT OF THE HEAD WO CONTRAST, STABLE.
--- NOTE | 2017-04-26 18:56 | NUR ---
[employer] END NOTES PATIENT RESTING IN BED, ALL NEEDS MET, REFUSED DINNER, CT OF HEAD AND 3RD LACTIC ACID PENDING, WILL ENDORSE TO BILLET INSPECTOR FOR CONTINUITY OF CARE.
--- NOTE | 2017-04-26 19:45 | NUR ---
RN OPENING NOTE RECEIVED PATIENT IN THE BED, AWAKE, ORIENTED TO NAME AND PLACE, NO PAIN OR DISCOMFORT NOTED, NO RESPIRATORY DISTRESS NOTED, RIGHT AC 20 GAUGE, FLUSHES WELL, NO S/S OF INFILTRATION NOTED, CALL LIGHT WITHIN REACH, BED ALARM ACTIVATED, SIDE RAILS UP X 2, INSTRUCTED PATIENT TO USE CALL LIGHT, BELONGINGS WITHIN REACH, WILL CONTINUE TO MONITOR
[2017-04-26 20:00] VITALS: BP 97/55
[2017-04-26] MEDS: IV NS 0.9% 1,000 ML IV PRN (23:02)
[2017-04-27 04:00] VITALS: BP 95/52
--- NOTE | 2017-04-27 07:05 | NUR ---
EXPERIMENTAL WELDER OPENING NOTE AAO2. RESTING CALMLY. DEMENTIA. DENIES DIZZINESS AT PRESENT. SR-ST 100-112. RA 96% O2 SATS. R AC 20G INFUSING NS @ 60ML/HR. HEAD CT NEG OLD CVA. URINE AND BLD CULT RESULTS PDG. LEVAQUIN Q48HR IV UTI. LACTIC ACID IMPROVING. AFEBRILE. DVT PUMPS ORDERED. PT EVAL PDG. CXR CLEAR X MASS V SCARRING. BED IN LOW LOCKED POSITION. CALL LIGHT IN REACH. WILL CONT TO MONITOR CLOSELY.
--- NOTE | 2017-04-27 07:23 | NUR ---
RN CLOSING NOTE NO ACUTE DURING MY SHIFT, PATIENT IS AWAKE, ALERT/ORIENTED X2, ST 100, ONGOING NS 0.9% AT 60 ML/HR, NO RESPIRATORY DISTRESS NOTED, NO PAIN OR DISCOMFORT, ALL BELONGINGS WITHIN REACH, CALL LIGHT WITHIN REACH, SIDE RAILS UP X 2, PROVIDED REPORT TO AM NURSE
[2017-04-27 08:48] VITALS: BP 95/63
--- NOTE | 2017-04-27 09:00 | NUR ---
DVT PUMPS PLACED ON PT.
[2017-04-27 13:49] VITALS: BP 102/59
[2017-04-27] MEDS: IV NS 0.9% 1,000 ML IV PRN ×2 (13:56→23:47)
[2017-04-27 15:54] VITALS: BP 106/64
--- NOTE | 2017-04-27 17:59 | NUR ---
WATCH CASER CLOSING NOTE ST 113. SITTING UP IN BED FEEDING SELF. NS RUNNING INTO RAC 20G 125ML/HR. AFEBRILE. URINE CULT POSITIVE. ID CONSULT TO SEE PT. CALL LIGHT IN REACH. WILL ENDORSE TO AMBER RN.
[2017-04-27 20:00] VITALS: BP 119/56
[2017-04-28] VITALS: BP 102/62
--- NOTE | 2017-04-28 07:20 | NUR ---
NATURALIZATION EXAMINER OPENING NOTE AAO2. HOB ELEVATED. RFA 20G NS 125ML/HR. DIAPER. SR. NO DISTRESS NOTED. IVABX UTI. CONT PT UNSTEADY GAIT CONFUSION DEMENTIA. BED IN LOW LOCKED POSITION. SIDE RAILS UP X 2. CALL LIGHT IN REACH. WILL CONT TO MONITOR.
[2017-04-28 07:41] LABS: BASOPHILS % (AUTO) 0.5 % (0.0-2.0); EOSINOPHILS # (AUTO) 0.2 /CMM (0.0-0.7); EOSINOPHILS % (AUTO) 2.4 % (0.0-6.0); HEMATOCRIT 36 % (33-45); HEMOGLOBIN 12.1 g/dL (11.5-14.8); LYMPHOCYTES # (AUTO) 2.6 /CMM (0.8-4.8); LYMPHOCYTES % (AUTO) 27.6 % (20.0-44.0); MEAN CORPUSCULAR HEMOGLOBIN 30 PG (26.0-33.0); MEAN CORPUSCULAR HGB CONC 34 g/dl (31.0-36.0); MEAN CORPUSCULAR VOLUME 88 fL (82-100); MONOCYTES # (AUTO) 0.9 /CMM (0.1-1.30); MONOCYTES % (AUTO) 9.5 % (2.0-12.0); NEUTROPHILS # (AUTO) 5.6 /CMM (1.8-8.9); PLATELET COUNT (AUTO) 254 /CMM (150-450); RED BLOOD CELL COUNT(AUTO) 4.04 MIL/uL (4.0-5.2); WHITE BLOOD COUNT (AUTO) 9.4 K/uL (4.3-11.0)
[2017-04-28 07:49] LABS: CREATININE 0.7 mg/dL (0.6-1.3); POTASSIUM 3.8 mmol/L (3.5-5.1)
[2017-04-28 09:11] VITALS: BP 99/68
[2017-04-28 13:35] VITALS: BP 97/63
[2017-04-28] MEDS ORDERED: LEVOFLOXACIN 750 MG /D5W 150ML 750 MG in PREMIX 1 EA IV SCH (14:00)
[2017-04-28 16:45] VITALS: BP 94/57
--- NOTE | 2017-04-28 18:33 | NUR ---
MS RN CLOSING NOTE NO ACUTE EVENTS. AAO2. GOOD APPETITE. AFEBRILE. LEVAQUIN IV FOR UTI ADMIN. RAC 20G PATENT. CALL LIGHT IN REACH. WILL ENDORSE REPORT TO NOC ARLEN.
[2017-04-28 20:00] VITALS: BP 105/65
[2017-04-29 04:00] VITALS: BP 103/69
[2017-04-29 04:05] VITALS: BP 100/75
[2017-04-29 04:10] VITALS: BP 130/95
--- NOTE | 2017-04-29 07:21 | NUR ---
POLITICAL CONSULTANT OPENING NOTE RN RECEIVED THE PATIENT ALERT AND ORIENTED X 2. PT HAS R FOREARM 20 G SL. PT HAS CLEAN DRY DIAPER. NO DISTRESS NOTED BED IN LOW LOCKED POSITION. SIDE RAILS UP X 2. CALL LIGHT IN REACH. RN WILL CONTINUE TO MONITOR THROUGHOUT THE DAY .
[2017-04-29 08:00] VITALS: BP 105/65
--- NOTE | 2017-04-29 08:03 | NUR ---
RN NOTE PT REMAINS IN NO ACUTE DISTRESS IN BED. PT DID NOT HAVE ANY SIGNIFICANT CHANGE IN CONDITION DURING SHIFT. ALL NEEDS MET, ALL ORDERS CARRIED OUT. WILL ENDORSE CARE TO AM RN FOR CONTINUITY OF CARE.
[2017-04-29] MEDS ORDERED: SULF1TAB48 PO (13:34)
--- NOTE | 2017-04-29 16:00 | NUR ---
RN NOTE DISCHARGE PAPERWORK REVIEWED AND GIVEN TO EQUIPMENT OILER , PATIENT PRESCRIPTIONS GIVEN TO EQUIPMENT OILER , EQUIPMENT OILER ACKNLOWEGED UNDERSTANDING OF PLAN OF CARE AND CONTINUITY OF CARE. IV REMOVED WITHOUT ISSUE
== END 2017-04-29 17:21 | disposition home health service (06) | DRG 872 ==
LOC: ER 12:38 → TELE1 14:41 → MEDSG1 04-28 10:22
PROVIDERS: ADMIT Nurse Practitioner Acute Care; ATTEND Nurse Practitioner Acute Care
DX: A41.9 Sepsis, unspecified organism (principal); E87.2 Acidosis; N39.0 Urinary tract infection, site not specified; R65.20 Severe sepsis without septic shock; E78.5 Hyperlipidemia, unspecified; I95.1 Orthostatic hypotension; Z85.841 Personal history of malignant neoplasm of brain; Z87.891 Personal history of nicotine dependence; F03.90 Unspecified dementia, unspecified severity, without behavioral disturbance, psychotic disturbance, mood disturbance, and anxiety; F32.9 Major depressive disorder, single episode, unspecified; Z85.118 Personal history of other malignant neoplasm of bronchus and lung; Z79.899 Other long term (current) drug therapy; Z92.21 Personal history of antineoplastic chemotherapy; B96.89 Other specified bacterial agents as the cause of diseases classified elsewhere
CPT/HCPCS: 36415; 70450-TC; 71045-TC; 80048-TC; 80076-TC; 81000-TC; 83605-TC; 84484-TC; 85025-TC; 85730-TC; 87040-TC; 87081-TC; 87086-TC; 87186-TC; 93307-TC; 93880-TC; 97116-TC; 97530-TC; A4216; A4606; J1956; J7030; Z7610

== ENCOUNTER 2017-07-09 10:13 | Outpatient (CLI) | payer MEDICARE, BC ==
[~2017-07-09 10:13] MED LIST changes: -CIPR-262 PO; -DIPH25CA83 PO; -FAMO-131 PO; -METH4TAB16 PO; +SULF1TAB48 PO
[2017-07-09] MEDS ORDERED: GADOVERSETAMIDE 5 MMOL/10 ML VIAL IJ ONE (10:14)
[2017-07-09] MEDS ORDERED: GADOVERSETAMIDE 2.5 MMOL/5 ML VIAL IJ ONE (10:14)
== END 2017-07-09 23:59 | disposition home or self-care (01) ==
LOC: MRI 10:13
PROVIDERS: ATTEND Neurological Surgery
DX: C79.31 Secondary malignant neoplasm of brain (principal); J32.2 Chronic ethmoidal sinusitis; R90.82 White matter disease, unspecified
CPT/HCPCS: 70553; A9579 ×2

== ENCOUNTER 2017-09-18 12:48 | Emergency (ER) | payer MEDICARE, BC ==
[~2017-09-18] VITALS: Ht 162.6 cm; Wt 64.4 kg
[2017-09-18 12:55] VITALS: BP 100/67
[2017-09-18 14:10] LABS: APPEARANCE,URINE Turbid (CLEAR); BILIRUBIN,URINE Negative (NEGATIVE); BLOOD, URINE Large Ery/uL (NEGATIVE); COLOR,URINE Yellow (YELLOW); KETONES,URINE Negative (NEGATIVE); LEUKOCYTE ESTERASE ,URINE Large (NEGATIVE); NITRITE, URINE Positive (NEGATIVE); PROTEIN,URINE >=300 mg/dl (NEGATIVE); UGLUCOSE Negative (NEGATIVE); UROBILINOGEN,URINE 0.2 EU/dL (0.2)
[2017-09-18 14:22] LABS: SQUAMOUS EPITHELIAL CELL,UR Rare /HPF (None Seen); WBC,URINE TOO NUMEROUS TO COUN /HPF (0-3)
[2017-09-18 14:23] LABS: BACTERIA,URINE 3+ /HPF (None Seen)
--- NOTE | 2017-09-18 14:30 | NUR ---
URINE OBTAINED WITH CATHETER, SENT TO LAB.
== END 2017-09-18 15:46 | disposition home or self-care (01) ==
LOC: ER 12:53
DX: N39.0 Urinary tract infection, site not specified (principal); M25.551 Pain in right hip; M25.552 Pain in left hip; F03.90 Unspecified dementia, unspecified severity, without behavioral disturbance, psychotic disturbance, mood disturbance, and anxiety; E78.00 Pure hypercholesterolemia, unspecified; Z85.118 Personal history of other malignant neoplasm of bronchus and lung; Z85.841 Personal history of malignant neoplasm of brain; Z88.1 Allergy status to other antibiotic agents; Z88.8 Allergy status to other drugs, medicaments and biological substances; Z98.890 Other specified postprocedural states
CPT/HCPCS: 73502; 73503; 81001; 87077; 87086; 87186; 99285; A4606; 81000-TC; Z7610

== ENCOUNTER 2019-01-23 16:26 | Inpatient (IN) | payer MEDICARE, BC ==
[~2019-01-23] VITALS: Ht 154.9 cm; Wt 68.0 kg
--- NOTE | 2019-01-23 16:51 | NUR ---
COUGH AND CONGESTION X 2 DAYS
--- NOTE | 2019-01-23 16:51 | NUR ---
BB CAREGIVER TO THE ER
[2019-01-23] MEDS ORDERED: ALBU8.5H8 INH (16:55)
[2019-01-23 17:19] LABS: BASOPHILS # (AUTO) 0.1 /CMM (0.0-0.2); BASOPHILS % (AUTO) 0.5 % (0.0-2.0); EOSINOPHILS % (AUTO) 0.7 % (0.0-6.0); HEMATOCRIT 30 % (33-45); LYMPHOCYTES # (AUTO) 2.3 /CMM (0.8-4.8); LYMPHOCYTES % (AUTO) 15.1 % (20.0-44.0); MEAN CORPUSCULAR HGB CONC 30 g/dl (31.0-36.0); MEAN CORPUSCULAR VOLUME 66 fL (82-100); MONOCYTES # (AUTO) 1.4 /CMM (0.1-1.30); MONOCYTES % (AUTO) 9.3 % (2.0-12.0); NEUTROPHILS # (AUTO) 11.3 /CMM (1.8-8.9); NEUTROPHILS % (AUTO) 74.4 % (43.0-81.0); PLATELET COUNT (AUTO) 427 /CMM (150-450); RED BLOOD CELL COUNT(AUTO) 4.54 MIL/uL (4.0-5.2); WHITE BLOOD COUNT (AUTO) 15.1 K/uL (4.3-11.0)
[2019-01-23 17:40] LABS: CALCIUM, SERUM 8.5 mg/dL (8.5-10.1); CARBON DIOXIDE 23 mmol/L (21-32); CHLORIDE 101 mmol/L (98-107); CREATININE 0.9 mg/dL (0.6-1.3); GLUCOSE 118 mg/dL (74-106); POTASSIUM 4.4 mmol/L (3.5-5.1); SODIUM SERUM 132 mmol/L (136-145); UREA NITROGEN, BLOOD 12 mg/dL (7-18)
[2019-01-23 17:46] LABS: ALANINE AMINOTRANSFERASE 11 U/L (12-78); ALBUMIN 2.8 g/dL (3.4-5.0); ALKALINE PHOSPHATASE 75 U/L (46-116); ASPARTATE AMINOTRANSFERASE 20 U/L (15-37); BILIRUBIN,DIRECT 0.1 mg/dL (0.0-0.2); BILIRUBIN,TOTAL 0.7 mg/dL (0.2-1.0); TOTAL PROTEIN, SERUM 7.1 g/dL (6.4-8.2)
--- NOTE | 2019-01-23 17:54 | NUR ---
URINE SAMPLE COLLECTED VIA STRAIGHT CATH, SENT TO LAB
--- NOTE | 2019-01-23 17:56 | NUR ---
YOLI DENNISON AT BEDSIDE
[2019-01-23 18:02] LABS: APPEARANCE,URINE Slightly Cloudy (CLEAR); BILIRUBIN,URINE Negative (NEGATIVE); BLOOD, URINE Moderate Ery/uL (NEGATIVE); COLOR,URINE Yellow (YELLOW); KETONES,URINE Negative (NEGATIVE); LEUKOCYTE ESTERASE ,URINE Large (NEGATIVE); NITRITE, URINE Negative (NEGATIVE); PH,URINE 6.5 (5.0-8.0); PROTEIN,URINE 30 mg/dl (NEGATIVE); UGLUCOSE Negative (NEGATIVE); UROBILINOGEN,URINE 0.2 EU/dL (0.2)
--- NOTE | 2019-01-23 18:10 | NUR ---
REQUESTED [facility] BED
[2019-01-23 18:12] LABS: BACTERIA,URINE Moderate /HPF (None Seen); SQUAMOUS EPITHELIAL CELL,UR Few /HPF (None Seen)
[2019-01-23 18:13] LABS: WBC,URINE 51-80 /HPF (0-3)
--- NOTE | 2019-01-23 19:29 | NUR ---
PT RECEIVED IN BED AAOX4. NAD NOTED CAREGIVER AT BEDSIDE
[2019-01-23] MEDS ORDERED: CEFTRIAXONE 1 G in IV D5W 50 ML IV SCH (19:30)
[2019-01-23] MEDS ORDERED: Z GUARD REMEDY 2 OZ OINT TP PRN (19:30)
[2019-01-23] MEDS ORDERED: MORPHINE SULFATE INJ 2 MG/ML DISP.SYRIN IV PRN (19:30)
[2019-01-23] MEDS ORDERED: HYDROCODONE/APAP 5/325MG 1 EACH TABLET PO PRN (19:30)
[2019-01-23] MEDS ORDERED: MAG HYDROX/AL HYDROX/SIMETH 30 ML UDC PO PRN (19:30)
[2019-01-23] MEDS ORDERED: ACETAMINOPHEN 325 MG TABLET PO PRN (19:30)
[2019-01-23] MEDS ORDERED: ONDANSETRON HCL/PF 4 MG/2 ML VIAL IVP PRN (19:30)
[2019-01-23] MEDS ORDERED: MAGNESIUM HYDROXIDE 30 ML UDC PO PRN (19:30)
--- NOTE | 2019-01-23 19:42 | NUR ---
BED ASSIGNMENT 105
[2019-01-23] MEDS ORDERED: FEE PK DOSING 1 MIN EA MC ONE (20:04)
--- NOTE | 2019-01-23 20:33 | NUR ---
REPORT GIVEN TO ARLEN BENITEZ FOR SURINDER. TO 104
--- NOTE | 2019-01-23 20:53 | NUR ---
PT TRANSPORTED TO UNIT W/ RN AT BEDSIDE. NAD NOTED DURING TRANSPORT.
[2019-01-23] MEDS: IV NS 0.9% 1,000 ML IV PRN (21:16)
[2019-01-23] MEDS: GENTAMICIN 80 MG in IV D5W 50 ML IV SCH (21:16)
--- NOTE | 2019-01-23 21:50 | NUR ---
RN MS ADMISSION NOTES, RECEIVED 68 YO FEMALE FROM ER DEPARTMENT VIA STRETCHER ACCOMPANIED BY 2NURSES AND CAREGIVER, ADMITTING ELIF COX WITH ADMITTING DX UTI, H/O BRAIN CA, DEMENTIA, HYPERLIPIDEMIA, DEPRESSION, ANEMIA, PATIENT A/O X3 ABLE TO VERBALIZE NEEDS AND CONCERNS, BREATHING EVEN ND UNLABORED, AT RA NO SOB/ACUTE DISTRESS NOTED AT THIS TIME, LEFT FA 20G PATENT AND INTACT, AFEBRILE, SKIN DRY, AND INTACT, BED BATH GIVEN UPON ADMISSION, DRY AND CLEAN, BILATERAL 2 1/2 S/R OF BED UP FOR REPOSITIONING, CALL LIGHT W/I REACH, CAREGIVER AT BEDSIDE, WILL CONTINUE TO MONITOR CLOSELY.
[2019-01-23 23:00] VITALS: BP 102/76
[2019-01-24 04:00] VITALS: BP 100/60
--- NOTE | 2019-01-24 06:39 | NUR ---
RN MS CLOSING NOTES, PATIENT IN BED SLEEPING AT THIS TIME, BUT EASILY AROUSES TO VERBAL/TACTILE STIMULI, ON ROOM AIR, NO SOB/ACUTE DITRESS NOTED, IV SITE LEFT FA 20G PATENT AND INTACT 0.9% NS AT 75ML/HR, NO S/S OF INFILTRATION OR ABNORMALITY NOTED, CALL LIGHT W/I REACH, DRY AND CLEAN, BED LOCKED AND IN LOWEST POSITION, 2 S/R OF BED UP, CALL LIGHT W/I REACH, WILL ENDORSE CONTINUITY OF CARE TO ONCOMING NURSE.
[2019-01-24 06:58] LABS: BASOPHILS % (AUTO) 0.2 % (0.0-2.0); EOSINOPHILS % (AUTO) 0.9 % (0.0-6.0); HEMATOCRIT 27 % (33-45); HEMOGLOBIN 8.1 g/dL (11.5-14.8); LYMPHOCYTES # (AUTO) 1.6 /CMM (0.8-4.8); LYMPHOCYTES % (AUTO) 13.5 % (20.0-44.0); MEAN CORPUSCULAR HGB CONC 30 g/dl (31.0-36.0); MEAN CORPUSCULAR VOLUME 65 fL (82-100); MONOCYTES # (AUTO) 1.2 /CMM (0.1-1.30); MONOCYTES % (AUTO) 9.8 % (2.0-12.0); NEUTROPHILS # (AUTO) 9.2 /CMM (1.8-8.9); NEUTROPHILS % (AUTO) 75.6 % (43.0-81.0); PLATELET COUNT (AUTO) 384 /CMM (150-450); RED BLOOD CELL COUNT(AUTO) 4.11 MIL/uL (4.0-5.2); WHITE BLOOD COUNT (AUTO) 12.2 K/uL (4.3-11.0)
--- NOTE | 2019-01-24 07:20 | NUR ---
MS/RN OPENING NOTES RECEIVED PATIENT IN BED SLEEPING COMFORTABLY. EASILY AROUSABLE. PATIENT ABLE TO RESPOND TO VERBAL AND TACTILE STIMULI. PATIENT IS ALERT AND ORIENTED X3. NO PAIN OR ACUTE DISTRESS AT THIS TIME TIME. RESPIRATION EVEN AND UNLABORED. SKIN IS DRY WARM TO TOUCH. PATIENT NOTED WITH IV ACCESS ON LEFT FA 20G PATENT AND INTACT 0.9% NS AT 75ML/HR. INTACT AND PATENT. NO S/S OF INFILTRATION OR INFECTION. ALL NEEDS ANTICIPATED. CALL LIGHT WITHIN REACHED. SAFETY MAINTAINED. BED LOCKED AND IN LOWEST POSITION. REPOSITIONED Q2HRS. PLAN OF CARE DISCUSSED. WILL CONTINUE TO MONITOR CLOSELY.
[2019-01-24 07:35] LABS: THYROID STIMULATING HORMONE 2.229 uIU/mL (0.358-3.74)
[2019-01-24 07:40] LABS: ALBUMIN 2.3 g/dL (3.4-5.0); BILIRUBIN,TOTAL 0.4 mg/dL (0.2-1.0); CREATININE 0.8 mg/dL (0.6-1.3); MAGNESIUM 1.6 mg/dL (1.8-2.4); PHOSPHORUS 2.6 mg/dL (2.5-4.9); POTASSIUM 3.9 mmol/L (3.5-5.1); TOTAL PROTEIN, SERUM 6.3 g/dL (6.4-8.2)
[2019-01-24 08:00] VITALS: BP_SYST 79; BP_SYST 95; BP_DIAS 48; BP_DIAS 61
[2019-01-24] MEDS: GENTAMICIN 80 MG in IV D5W 50 ML IV SCH ×2 (08:53→20:17)
[2019-01-24] MEDS: IV NS 0.9% 1,000 ML IV PRN (08:53)
[2019-01-24] MEDS ORDERED: MAGNESIUM OXIDE 400 MG TABLET PO ONE (12:00)
[2019-01-24] MEDS: SOD FERRIC GLUC 125 MG in IV NS 0.9% 100 ML IV SCH (15:10)
[2019-01-24 16:00] VITALS: BP 124/70
--- NOTE | 2019-01-24 19:10 | NUR ---
MS/RN CLOSING NOTES PATIENT CONTINUES TO REMAIN IN STABLE CONDITION THROUGHOUT THE SHIFT. PROVIDED COMFORT AND SAFETY. PATIENT NOTED WITH IV ACCESS ON LEFT FA #20G PATENT AND INTACT 0.9% NS AT 75ML/HR. INTACT AND PATENT. NO S/S OF INFILTRATION OR INFECTION. ALL NEEDS ANTICIPATED. CALL LIGHT WITHIN REACHED. SAFETY MAINTAINED. BED LOCKED AND IN LOWEST POSITION. REPOSITIONED Q2HRS. PLAN OF CARE DISCUSSED. WILL CONTINUE TO MONITOR CLOSELY. ENDORSED TO PM NURSE FOR SURINDER.
[2019-01-24 20:00] VITALS: BP 121/67
--- NOTE | 2019-01-24 22:39 | NUR ---
ARLEN MS NOTES, PATIENT IN BED AWAKE AT THIS TIME, 1/0 X3 ABLE TO VERBALIZED NEEDS AND CONCERNS, BREATHING EVEN AND UNLABORED, NO SOB/SCUTE DISTRESS NOTED AT THIS TIE, ON ROOM AIR, IV SITE LEFT FA 20G PATENT AND INTACT 0.9% NS AT 75ML/HR, NO S/S OF INFILTRATION OR ABNORMALITY NOTED, CALL LIGHT W/I REACH, DRY AND CLEAN, BED LOCKED AND IN LOWEST POSITION, 2 S/R OF BED UP, CALL LIGHT W/I REACH, WILL CONTINUE TO MONITOR CLOSELY. Addendum: 01/24/19 at 2242 by EMMANUEL BRIGHT RN CORRECT TIME 1929
[2019-01-25] MEDS: IV NS 0.9% 1,000 ML IV PRN (02:30)
[2019-01-25 04:00] VITALS: BP 124/67
--- NOTE | 2019-01-25 07:00 | NUR ---
RN MS CLOSING NOTES, PATIENT IN BED SLEEPING AT THIS TIME, BUT EASILY AROUSES TO VERBAL/TACTILE STIMULI, ON ROOM AIR, NO SOB/ACUTE DISTRESS NOTED, IV SITE LEFT FA 20G PATENT AND INTACT 0.9% NS AT 75ML/HR, NO S/S OF INFILTRATION OR ABNORMALITY NOTED AT SITE, NO SIGNIFICANT CHANGE IN CONDITION DURING THE NIGHT, DRY AND CLEAN, BED LOCKED AND IN LOWEST POSITION, 2 S/R OF BED UP FOR REPOSITIONING, CALL LIGHT W/I REACH, WILL ENDORSE CONTINUITY OF CARE TO ONCOMING NURSE
--- NOTE | 2019-01-25 07:36 | NUR ---
MS/RN OPENING NOTES RECEIVED PATIENT IN BED SLEEPING COMFORTABLY. EASILY AROUSABLE. PATIENT ABLE TO RESPOND TO VERBAL AND TACTILE STIMULI. PATIENT IS ALERT AND ORIENTED X3. NO PAIN OR ACUTE DISTRESS AT THIS TIME TIME. RESPIRATION EVEN AND UNLABORED. SKIN IS DRY WARM TO TOUCH. PATIENT NOTED WITH IV ACCESS ON LEFT FA 20G LEAKING. IV REMOVED AND A NEW IV TO BE PLACED. CALL LIGHT WITHIN REACHED. SAFETY MAINTAINED. BED LOCKED AND IN LOWEST POSITION. SIDE RAILS UP X3. WILL CONTINUE TO MONITOR CLOSELY.
[2019-01-25 08:00] VITALS: BP 96/64
[2019-01-25 08:16] LABS: CALCIUM, SERUM 8.3 mg/dL (8.5-10.1); CREATININE 0.7 mg/dL (0.6-1.3); MAGNESIUM 1.9 mg/dL (1.8-2.4); PHOSPHORUS 2.7 mg/dL (2.5-4.9); POTASSIUM 3.9 mmol/L (3.5-5.1)
[2019-01-25 08:19] LABS: BASOPHILS % (AUTO) 0.4 % (0.0-2.0); HEMATOCRIT 28 % (33-45); HEMOGLOBIN 8.5 g/dL (11.5-14.8); LYMPHOCYTES # (AUTO) 1.6 /CMM (0.8-4.8); LYMPHOCYTES % (AUTO) 12.1 % (20.0-44.0); MEAN CORPUSCULAR HGB CONC 30 g/dl (31.0-36.0); MEAN CORPUSCULAR VOLUME 66 fL (82-100); MONOCYTES # (AUTO) 1.3 /CMM (0.1-1.30); MONOCYTES % (AUTO) 10.1 % (2.0-12.0); NEUTROPHILS % (AUTO) 76.4 % (43.0-81.0); PLATELET COUNT (AUTO) 390 /CMM (150-450)
--- NOTE | 2019-01-25 12:20 | NUR ---
RN MS NOTE GENTAMICIN ADMINISTERED LATE BECAUSE WAITING FOR THE GENTAMICIN TROUGH FROM LAB.
[2019-01-25] MEDS: GENTAMICIN 80 MG in IV D5W 50 ML IV SCH (12:22)
--- NOTE | 2019-01-25 12:56 | NUR ---
RN MS NOTE JUST TALKED TO THE LAB. GENTAMICIN PEAK NEEDS TO BE CHECKED 1 HOUR AFTER GENTAMICIN ADMINISTRATION. LAB WILL BE HERE AT 14:00.
[2019-01-25 16:00] VITALS: BP 92/62
[2019-01-25] MEDS: SOD FERRIC GLUC 125 MG in IV NS 0.9% 100 ML IV SCH (17:24)
[2019-01-25] MEDS: BENZONATATE 100 MG CAPSULE PO PRN (18:14)
--- NOTE | 2019-01-25 19:50 | NUR ---
RN OPENING NOTES RECEIVED PATIENT FROM AM NURSESAMRA. PATIENT IS A/O X 3, ON ROOM AIR, NO SIGNS OF RESPIRATORY DISTRESS, NO SOB NOTED. IV SITE RIGHT WRIST 22G PATENT AND INTACT. NO COMPLAINTS OF PAIN OR DISCOMFORT AT THIS TIME. RESPIRATIONS EVEN AND UNLABORED. NO S/S OF INFILTRATION/INFECTION NOTED. SAFETY PRECAUTIONS IMPLEMENTED; CALL LIGHT WITHIN REACH, BED LOCKED, BED LOWEST POSITION, SIDE RAILS UP X2. WILL CONTINUE TO MONITOR.
[2019-01-25 20:00] VITALS: BP 113/66
--- NOTE | 2019-01-25 20:55 | NUR ---
RN MS CLOSING NOTES, PATIENT IN BED A/OX3, ON ROOM AIR, NO SOB/ACUTE DISTRESS NOTED, IV SITE RIGHT WRIST 22G PATENT AND INTACT NO S/S OF INFILTRATION OR ABNORMALITY NOTED AT SITE, NO SIGNIFICANT CHANGE IN CONDITION DURING THE SHIFT, DRY AND CLEAN, BED LOCKED AND IN LOWEST POSITION, CALL LIGHT W/I REACH, ENDORSED CONTINUITY OF CARE TO PM NURSE.
[2019-01-25] MEDS: MEROPENEM 500 MG in IV NS 0.9% 50 ML IV SCH (20:59)
[2019-01-26] MEDS: IV NS 0.9% 1,000 ML IV PRN ×2 (02:54→20:20)
[2019-01-26] MEDS: MEROPENEM 500 MG in IV NS 0.9% 50 ML IV SCH ×3 (04:32→20:21)
--- NOTE | 2019-01-26 06:23 | NUR ---
RN CLOSING NOTES PATIENT REMAINS IN BED A/O X3, ON ROOM AIR, NO SIGNS OF RESPIRATORY DISTRESS. PATIENT DENIES SHORTNESS OF BREATH. IV SITE RIGHT WRIST 22G PATENT AND INTACT. NO COMPLAINTS OF PAIN OR DISCOMFORT AT THIS TIME. NO S/S OF INFILTRATION/INFECTION NOTED. PATIENT TURNED EVERY 2 HOURS. ALL NEEDS MET AT THIS TIME. SAFETY PRECAUTIONS IMPLEMENTED; CALL LIGHT WITHIN REACH, BED LOCKED, BED LOWEST POSITION, SIDE RAILS UP X2. WILL ENDORSE TO DAYSHIFT NURSE FOR CONTINUITY OF CARE.
[2019-01-26 06:27] LABS: BASOPHILS % (AUTO) 0.4 % (0.0-2.0); EOSINOPHILS % (AUTO) 1.8 % (0.0-6.0); HEMATOCRIT 26 % (33-45); HEMOGLOBIN 7.8 g/dL (11.5-14.8); LYMPHOCYTES # (AUTO) 1.4 /CMM (0.8-4.8); LYMPHOCYTES % (AUTO) 11.8 % (20.0-44.0); MEAN CORPUSCULAR HGB CONC 30 g/dl (31.0-36.0); MEAN CORPUSCULAR VOLUME 66 fL (82-100); MONOCYTES # (AUTO) 1.2 /CMM (0.1-1.30); MONOCYTES % (AUTO) 10.2 % (2.0-12.0); NEUTROPHILS # (AUTO) 8.8 /CMM (1.8-8.9); NEUTROPHILS % (AUTO) 75.8 % (43.0-81.0); PLATELET COUNT (AUTO) 389 /CMM (150-450); RED BLOOD CELL COUNT(AUTO) 3.93 MIL/uL (4.0-5.2); WHITE BLOOD COUNT (AUTO) 11.6 K/uL (4.3-11.0)
[2019-01-26 06:54] LABS: CREATININE 0.8 mg/dL (0.6-1.3); MAGNESIUM 1.9 mg/dL (1.8-2.4); PHOSPHORUS 2.8 mg/dL (2.5-4.9)
[2019-01-26] MEDS: BENZONATATE 100 MG CAPSULE PO PRN (08:49)
[2019-01-26] MEDS ORDERED: TEMAZEPAM 15 MG CAPSULE PO PRN (16:30)
[2019-01-26] MEDS: SOD FERRIC GLUC 125 MG in IV NS 0.9% 100 ML IV SCH (17:30)
--- NOTE | 2019-01-26 19:20 | NUR ---
RN OPENING NOTES: PATIENT IN BED, AWAKE, AND VERBALLY RESPONSIVE. NO RESPIRATORY DISTRESS. NO C/O PAIN AT THIS TIME. (R) WRIST IV ACCESS G22 PATENT, INTACT, AND FLUSHING WELL, RUNNING NS AT 75 MLS/HR, TOLERATING WELL. SAFETY PRECAUTIONS IMPLEMENTED. BED LOCKED AND IN LOWEST POSITION. CALL LIGHT WITHIN REACH. WILL CONT. TO MONITOR.
[2019-01-26 20:00] VITALS: BP 108/69
[2019-01-26] MEDS: CODEINE/PROMETHAZINE HCL 5 ML UDC PO PRN (21:07)
[2019-01-26] MEDS ORDERED: SIMVASTATIN 20 MG TABLET PO SCH (22:00)
[2019-01-26] MEDS ORDERED: MIRTAZAPINE 15 MG TABLET PO SCH (22:00)
[2019-01-27 04:00] VITALS: BP 121/50
[2019-01-27] MEDS: MEROPENEM 500 MG in IV NS 0.9% 50 ML IV SCH ×2 (05:03→12:49)
[2019-01-27 06:14] LABS: BASOPHILS # (AUTO) 0.1 /CMM (0.0-0.2); BASOPHILS % (AUTO) 0.7 % (0.0-2.0); EOSINOPHILS % (AUTO) 4.6 % (0.0-6.0); HEMATOCRIT 27 % (33-45); LYMPHOCYTES # (AUTO) 1.6 /CMM (0.8-4.8); LYMPHOCYTES % (AUTO) 18.1 % (20.0-44.0); MEAN CORPUSCULAR HGB CONC 30 g/dl (31.0-36.0); MEAN CORPUSCULAR VOLUME 67 fL (82-100); MONOCYTES # (AUTO) 0.9 /CMM (0.1-1.30); MONOCYTES % (AUTO) 10.6 % (2.0-12.0); NEUTROPHILS # (AUTO) 5.8 /CMM (1.8-8.9); PLATELET COUNT (AUTO) 423 /CMM (150-450); WHITE BLOOD COUNT (AUTO) 8.8 K/uL (4.3-11.0)
[2019-01-27 06:36] LABS: CALCIUM, SERUM 8.2 mg/dL (8.5-10.1); CREATININE 0.7 mg/dL (0.6-1.3); MAGNESIUM 1.8 mg/dL (1.8-2.4)
--- NOTE | 2019-01-27 07:00 | NUR ---
RN CLOSING NOTES: PATIENT IN BED, AWAKE, AND VERBALLY RESPONSIVE. NO SOB. NO C/O PAIN. SAFETY PRECAUTIONS IMPLEMENTED DURING SHIFT. BED LOCKED AND IN LOWEST POSITION. CONT. ON ABX FOR UTI. NO ASE NOTED AT THIS TIME. AFEBRILE THROUGHOUT SHIFT. WILL ENDORSE TO AM SHIFT NURSE FOR CONTINUITY OF CARE.
--- NOTE | 2019-01-27 07:10 | NUR ---
MS/RN OPENING NOTES RECEIVED PATIENT IN BED A/OX2. PATIENT ABLE TO RESPOND TO VERBAL AND TACTILE STIMULI. NO PAIN OR ACUTE DISTRESS AT THIS TIME TIME. RESPIRATION EVEN AND UNLABORED. SKIN IS DRY WARM TO TOUCH. PATIENT IV WAS OUT AND SHE WAS WET. REGISTERED MEDICAL TRANSCRIPTIONIST CHANGED THE GOWN AND LINEN. A NEW IV TO BE PLACED. CALL LIGHT WITHIN REACHED. SAFETY MAINTAINED. BED LOCKED AND IN LOWEST POSITION. SIDE RAILS UP X3. WILL CONTINUE TO MONITOR CLOSELY.
[2019-01-27 08:00] VITALS: BP_SYST 108; BP_SYST 91; BP_DIAS 53; BP_DIAS 63
--- NOTE | 2019-01-27 08:47 | NUR ---
RN MS NOTE NEW IV PLACED ON RIGHT HAND #24, PATENT AND FLUSHED WELL. 0.9 NS STARTED @ 75 ML/HR.
[2019-01-27] MEDS: CODEINE/PROMETHAZINE HCL 5 ML UDC PO PRN (11:49)
--- NOTE | 2019-01-27 14:26 | NUR ---
CALLED PHARMACY TO BRING FERRLECIT.
[2019-01-27] MEDS: IV NS 0.9% 1,000 ML IV PRN (15:32)
[2019-01-27 16:00] VITALS: BP 97/63
[2019-01-27] MEDS: SOD FERRIC GLUC 125 MG in IV NS 0.9% 100 ML IV SCH (16:59)
[2019-01-27] MEDS ORDERED: MERO1VIA IV (18:01)
--- NOTE | 2019-01-27 19:37 | NUR ---
PATENT GOT DISCHARGED TO HOME. STABLE UPON DISCHARGE. LEFT THE HOSPITAL BY INSPECTOR MATERIAL DISPOSITION [place]. RIGHT HAND IV #24 SL, PATENT, INTACT AND FLUSHED WELL. PM NURSE ACCOMPANIED THEM TO THE MAIN EXIT. STRIPER SPRAY GUN ARRANGED WITH THE PATIENT'S HOME HEALTH FOR [place] 1 GRAM IV Q12 H X3 DAYS.
== END 2019-01-27 19:35 | disposition home health service (06) | DRG 690 ==
LOC: ER 16:30 → MEDSG1 19:48
PROVIDERS: ADMIT Nurse Practitioner Acute Care; ATTEND Nurse Practitioner Acute Care
DX: N39.0 Urinary tract infection, site not specified (principal); E44.0 Moderate protein-calorie malnutrition; E87.1 Hypo-osmolality and hyponatremia; D68.59 Other primary thrombophilia; D63.8 Anemia in other chronic diseases classified elsewhere; Z87.891 Personal history of nicotine dependence; Z85.841 Personal history of malignant neoplasm of brain; Z85.118 Personal history of other malignant neoplasm of bronchus and lung; F03.90 Unspecified dementia, unspecified severity, without behavioral disturbance, psychotic disturbance, mood disturbance, and anxiety; F32.9 Major depressive disorder, single episode, unspecified; E83.42 Hypomagnesemia; B96.5 Pseudomonas (aeruginosa) (mallei) (pseudomallei) as the cause of diseases classified elsewhere; D50.9 Iron deficiency anemia, unspecified; D72.829 Elevated white blood cell count, unspecified; E88.09 Other disorders of plasma-protein metabolism, not elsewhere classified; R73.9 Hyperglycemia, unspecified; Z68.28 Body mass index [BMI] 28.0-28.9, adult; Z88.1 Allergy status to other antibiotic agents
CPT/HCPCS: 36415; 71045-TC; 80048-TC; 80053-TC; 80061-TC; 80076-TC; 80170-TC; 81000-TC; 83540-TC; 83605-TC; 83735-TC; 84100-TC; 84443-TC; 84484-TC; 85025-TC; 85730-TC; 87040-TC; 87081-TC; 87086-TC; 87186-TC; 97110-TC; 97112-TC; 97116-TC; 97530-TC; A4216; G0378; J0696; J1580; J2185; J2916; J7030; J7060

== ENCOUNTER 2019-05-10 16:57 | Inpatient (IN) | payer MEDICARE, BC ==
[~2019-05-10] VITALS: Ht 157.5 cm; Wt 63.5 kg
[~2019-05-10 16:57] MED LIST changes: +ALBU8.5H8 INH; +MERO1VIA IV; -SULF1TAB48 PO
--- NOTE | 2019-05-10 17:10 | NUR ---
BIB CAREGIVER FOR COUGH AND FEVER THAT STARTED LAST NIGHT. PATIENT A/OX3, BREATHING EVEN AND UNLABORED, NO SOB NOTED, CHANGED INTO GOWN, ATTACHED TO THE CIRCUS PERFORMER.
--- NOTE | 2019-05-10 17:20 | NUR ---
DR. MANCERA AT BEDSIDE FOR EVAL.
--- NOTE | 2019-05-10 17:45 | NUR ---
DR. OSORIO AT BEDSIDE.
[2019-05-10 17:52] LABS: BASOPHILS % (AUTO) 0.3 % (0.0-2.0); EOSINOPHILS % (AUTO) 0.5 % (0.0-6.0); HEMATOCRIT 39 % (33-45); HEMOGLOBIN 12.5 g/dL (11.5-14.8); LYMPHOCYTES # (AUTO) 0.6 /CMM (0.8-4.8); LYMPHOCYTES % (AUTO) 5.5 % (20.0-44.0); MEAN CORPUSCULAR HGB CONC 32 g/dl (31.0-36.0); MEAN CORPUSCULAR VOLUME 81 fL (82-100); MONOCYTES # (AUTO) 0.6 /CMM (0.1-1.30); MONOCYTES % (AUTO) 6.1 % (2.0-12.0); NEUTROPHILS # (AUTO) 9.3 /CMM (1.8-8.9); NEUTROPHILS % (AUTO) 87.6 % (43.0-81.0); PLATELET COUNT (AUTO) 401 /CMM (150-450); RED BLOOD CELL COUNT(AUTO) 4.76 MIL/uL (4.0-5.2); WHITE BLOOD COUNT (AUTO) 10.6 K/uL (4.3-11.0)
[2019-05-10] MEDS ORDERED: IV NS 0.9% 1,000 ML IV PRN (18:26)
[2019-05-10] MEDS ORDERED: ONDANSETRON HCL/PF 4 MG/2 ML VIAL IVP PRN (18:30)
[2019-05-10] MEDS ORDERED: TEMAZEPAM 15 MG CAPSULE PO PRN (18:30)
[2019-05-10 18:48] LABS: ALANINE AMINOTRANSFERASE 23 U/L (12-78); ALBUMIN 2.9 g/dL (3.4-5.0); ALKALINE PHOSPHATASE 75 U/L (46-116); ASPARTATE AMINOTRANSFERASE 35 U/L (15-37); BILIRUBIN,DIRECT 0.1 mg/dL (0.0-0.2); BILIRUBIN,TOTAL 0.2 mg/dL (0.2-1.0); CALCIUM, SERUM 8.6 mg/dL (8.5-10.1); CARBON DIOXIDE 24 mmol/L (21-32); CHLORIDE 102 mmol/L (98-107); CREATININE 0.8 mg/dL (0.6-1.3); GLUCOSE 126 mg/dL (74-106); SODIUM SERUM 136 mmol/L (136-145); TOTAL PROTEIN, SERUM 6.9 g/dL (6.4-8.2); UREA NITROGEN, BLOOD 14 mg/dL (7-18)
--- NOTE | 2019-05-10 18:49 | NUR ---
CALLED NURSING SUP FOR M/S BED.
--- NOTE | 2019-05-10 18:49 | NUR ---
PAGED [facility].
[2019-05-10] MEDS ORDERED: MEROPENEM 1 G in IV NS 0.9% 100 ML IV ONE (18:51)
[2019-05-10] MEDS ORDERED: CEFEPIME 1 GM in IV D5W 50 ML IV ONE (19:00)
[2019-05-10] MEDS ORDERED: VANCOMYCIN 1 GM in IV D5W 250 ML IV ONE (19:00)
[2019-05-10] MEDS ORDERED: IV NS 0.9% 1,000 ML BAG IV ONE (19:00)
[2019-05-10] MEDS ORDERED: MEROPENEM 1,000 MG in IV NS 0.9% 100 ML IV ONE (19:00)
--- NOTE | 2019-05-10 19:30 | NUR ---
ENDORSED TO LUCRETIA MCKINLEY FOR SURINDER.
--- NOTE | 2019-05-10 19:35 | NUR ---
[facility]'S CAREGIVER
[2019-05-10 19:41] LABS: APPEARANCE,URINE Slightly Cloudy (CLEAR); BILIRUBIN,URINE Negative (NEGATIVE); BLOOD, URINE Small Ery/uL (NEGATIVE); COLOR,URINE Yellow (YELLOW); KETONES,URINE Negative (NEGATIVE); LEUKOCYTE ESTERASE ,URINE Small (NEGATIVE); NITRITE, URINE Negative (NEGATIVE); PH,URINE 6.5 (5.0-8.0); PROTEIN,URINE 100 mg/dl (NEGATIVE); UGLUCOSE Negative (NEGATIVE); UROBILINOGEN,URINE 0.2 EU/dL (0.2)
--- NOTE | 2019-05-10 19:45 | NUR ---
BED ASSIGNMENT [phone]
[2019-05-10 19:55] LABS: BACTERIA,URINE Moderate /HPF (None Seen); SQUAMOUS EPITHELIAL CELL,UR Few /HPF (None Seen); WBC,URINE 21-50 /HPF (0-3)
--- NOTE | 2019-05-10 20:03 | NUR ---
REPORT GIVEN TO ARLEN LYNN
--- NOTE | 2019-05-10 20:15 | NUR ---
MS HAND DRAWER IN HELPER NOTE RECEIVED PATIENT VIA GURNEY BY VENEER TAPER AND EMT TECH, TRANSFERRED TO BED. PATIENT IS A/OX2-3. TOLERATING ROOM AIR AT O2 SAT 93%. RESPIRATIONS ARE EVEN. EXPERIENCING SOB WHEN ANSWERING QUESTIONS. PLACED NASAL CANNULA ON 2L/MIN, O2 SAT 96%. DENIES PAIN AT THIS TIME. IN NO APPARENT DISTRESS. IV ACCESS IN LEFT HAND #20 RUNNING NS@75ML/HR. COMPLETED INITIAL PHYSICAL ASSESSMENT AT THIS TIME. COMPLETED A SKIN ASSESSMENT, SKIN INTAKE. ALTERNATIVE DISPUTE RESOLUTION MEDIATOR COMPLETED VITAL SIGNS AND BELONGING LIST. ORIENTED TO STAFF, AND CALL LIGHT. ASKED IF SHE WOULD LIKE A BREATHING TREATMENT, PATIENT REQUESTED TO HAVE BREATHING TREATMENT, RT CALLED. BED IS LOW AND LOCKED, HOB ELEVATED IN SEMI FOWLERS, SIDE RIALS UP, CALL LIGHT WITHIN REACH. WILL CONTINUE TO MONITOR.
[2019-05-10 20:25] VITALS: BP 127/61
--- NOTE | 2019-05-10 21:00 | NUR ---
MS RN NOTE CALLED RESPIRATORY THERAPY TO ADMINISTER PEN BREATHING TREATMENT TO PATIENT D/T SHE IS HAVING SOB WHEN TALKING. WILL CONTINUE TO MONITOR.
[2019-05-10] MEDS: ALBUTEROL FS 2.5 MG/3 ML VIAL.NEB NEB PRN (21:14)
[2019-05-10 21:15] VITALS: BP 86/67
[2019-05-10 21:30] VITALS: BP 127/61
[2019-05-11] VITALS: BP 155/72
[2019-05-11] MEDS ORDERED: MEROPENEM 1 G VIAL IV ONE (05:22)
--- NOTE | 2019-05-11 05:26 | NUR ---
MS RN NOTE CHARGE NURSE OVERRIDE MEROPENEM 1G DUE AT 0600 BECAUSE IT WAS NOT FOUND. RECHECKED, MEDICATION FOUND. WILL USE ONE PROVIDED BY PHARMACY AND PLACE THE ONE TAKEN OUT OF OMNI CELL IN THE ANTIBIOTIC BIN.
[2019-05-11] MEDS ORDERED: MEROPENEM 1 G in IV NS 0.9% 100 ML IV SCH (06:00)
[2019-05-11 07:28] LABS: BASOPHILS % (AUTO) 0.1 % (0.0-2.0); EOSINOPHILS % (AUTO) 0.1 % (0.0-6.0); HEMATOCRIT 34 % (33-45); LYMPHOCYTES # (AUTO) 0.6 /CMM (0.8-4.8); MEAN CORPUSCULAR HGB CONC 33 g/dl (31.0-36.0); MEAN CORPUSCULAR VOLUME 81 fL (82-100); MONOCYTES # (AUTO) 0.8 /CMM (0.1-1.30); MONOCYTES % (AUTO) 8.6 % (2.0-12.0); NEUTROPHILS # (AUTO) 7.3 /CMM (1.8-8.9); NEUTROPHILS % (AUTO) 84.2 % (43.0-81.0); PLATELET COUNT (AUTO) 297 /CMM (150-450); RED BLOOD CELL COUNT(AUTO) 4.16 MIL/uL (4.0-5.2); WHITE BLOOD COUNT (AUTO) 8.7 K/uL (4.3-11.0)
--- NOTE | 2019-05-11 07:38 | NUR ---
MS RN CLOSING NOTE PATIENT IN BED. PATIENT IS A/OX2-3. ON OXYGEN VIA NASAL CANNULA ON 2L/MIN. NO C/O PAIN. NO DISTRESS NOTED. IV ACCESS MAINTAINED IN LEFT HAND #20 RUNNING NS@75ML/HR. BED REMAINS LOW AND LOCKED, HOB ELEVATED IN SEMI FOWLERS, SIDE RIALS UP, CALL LIGHT WITHIN REACH. WILL ENDORSE TO NEXT SHIFT.
--- NOTE | 2019-05-11 07:46 | NUR ---
MS/TN OPENING NOTE Patient is resting in bed, A/O x2-3, showing no signs of acute distress or SOB, breathing is even and unlabored, saturating >95% on 2L NC. Breathing tx q 6 hours. Patient has no complaints of pain at this time. IV line in the left hand #20 is clean and patent. Bed is in lowest position, side rails x3 in upright position, safety fall and aspiration precautions enforced. Will continue with plan of care.
[2019-05-11 07:47] LABS: ALBUMIN 2.4 g/dL (3.4-5.0); BILIRUBIN,TOTAL 0.2 mg/dL (0.2-1.0); CALCIUM, SERUM 7.8 mg/dL (8.5-10.1); CREATININE 0.7 mg/dL (0.6-1.3); MAGNESIUM 1.6 mg/dL (1.8-2.4); PHOSPHORUS 2.7 mg/dL (2.5-4.9); POTASSIUM 3.9 mmol/L (3.5-5.1)
[2019-05-11 08:00] VITALS: BP 113/72
[2019-05-11] MEDS: Magnesium 1GM/D5W 100ML PREMIX 100 ML IV SCH ×2 (09:15→09:21)
[2019-05-11] MEDS: ACETAMINOPHEN 325 MG TABLET PO PRN ×2 (09:21→22:43)
[2019-05-11] MEDS ORDERED: FUROSEMIDE 40 MG/4 ML VIAL IV ONE ×2 (10:00→16:30)
[2019-05-11] MEDS ORDERED: diphenhydrAMINE HCL 50 MG/ML VIAL IV ONE (10:00)
--- NOTE | 2019-05-11 10:03 | NUR ---
MS/RN NOTE Notified MD that patient looks like she is having allergic reaction, has redness on her face and upper chest, also has heavy breathing and lungs sound congested upon auscultation. IV lasix 40mg ONE TIME and IV Benadryl 26 mg ONE TIME ordered per MD. Will continue to monitor.
--- NOTE | 2019-05-11 10:05 | NUR ---
MS/RN NOTE Hold on IV fluids for now per MD.
[2019-05-11] MEDS ORDERED: ALBUTEROL FS 2.5 MG/3 ML VIAL.NEB NEB SCH (15:30)
[2019-05-11] MEDS: ALBUTEROL FS 2.5 MG/3 ML VIAL.NEB NEB PRN (15:30)
[2019-05-11 16:00] VITALS: BP 122/47
--- NOTE | 2019-05-11 17:00 | NUR ---
MS/.RN NOTE Notified MD that patient has HR of 130s after breathing treatment and continues to be tachycardic from 115-130s. Patient also has increased SOB, saturating 96% on 2L NC. Per MD, IV lasix 40mg one time and out patient on tele monitoring. Will continue to monitor.
[2019-05-11] MEDS: MIRTAZAPINE 15 MG TABLET PO SCH (18:08)
[2019-05-11] MEDS: SIMVASTATIN 20 MG TABLET PO SCH (18:08)
--- NOTE | 2019-05-11 19:12 | NUR ---
TELE/RN CLOSING NOTE Patient is resting in bed, A/O x2-3, patient has SOB, saturating >95% on 2L NC. MD made aware. Patient is on tele monitor per MD order. Sinus Tachy 120s-130s. Breathing tx q 6 hours. Patient has no complaints of pain at this time. IV line in the left hand #20 is clean and patent s/l. DC fluids per MD. Bed is in lowest position, side rails x3 in upright position, safety fall and aspiration precautions enforced. Will endorse to chemical preparer.
--- NOTE | 2019-05-11 19:25 | NUR ---
SOCIETY REPORTER OPENING NOTES PATIENT SLEEPING IN BED. CAREGIVER, WESTLEY, PRESENT AT THE BEDSIDE. A/O X2-3. ON 2L NC. NO S/S OF SOB AND NO COMPLAINTS OF PAIN AT THIS TIME. TELE MONITOR READING SINUS TACH, HEART RATE 118. IV PRESENT ON LEFT HAND, SIZE 20, INTACT & PATENT, HEP LOCKED. BED LOCKED, ALARM ON, SIDE RAILS X2, CALL LIGHT WITHIN REACH. WILL CONTINUE TO MONITOR.
[2019-05-11 20:00] VITALS: BP 107/60
[2019-05-11 20:30] VITALS: BP 107/60
--- NOTE | 2019-05-11 21:13 | NUR ---
Met with patient and caregiver Telma at bedside. Patient resides in the first floor apartment with caregiver 19/10. Patient can ambulate around household with a walker and requires max assist with adl's. Has adequate DME: hosp bed, walker, wheelchair, shower chair, grab bars and commode. She is currently on service with [facility] [phone]. Her pcp is Dr. Ballesteros, and [facility] [facility] does home visits. Current dc plan is to return home, caregiver Telma [phone] will provide ride. Addendum: 05/11/19 at 2114 by PABLO TOSCANO RN Amended: Links added.
--- NOTE | 2019-05-11 22:45 | NUR ---
FITNESS ASSISTANT NOTES PATIENT'S TEMP 99.7. PRN TYLENOL 650MG GIVEN AND COOLING MEASURES STARTED. TELE MONITOR READING SINUS TACH, HEART RATE 106. WILL CONTINUE TO MONITOR.
[2019-05-12] VITALS: BP 155/72
--- NOTE | 2019-05-12 00:05 | NUR ---
BRIM STITCHER NOTES PATIENT'S TEMP 98.2. TELE MONITOR READING SINUS RHYTHM, HEART RATE 97. WILL CONTINUE TO MONITOR.
--- NOTE | 2019-05-12 01:17 | NUR ---
RT NOTES RECEIVED PT ON 3LPM NC. PT IS CURRENTLY ASLEEP. NO LABORED BREATHING PRESENT. NO S/S OF SOB/ DISTRESS NOTED. WILL CONTINUE TO MONITOR T/O SHIFT. PT SPO2 BETWEEN 95%-97%
[2019-05-12 04:00] VITALS: BP 98/60
--- NOTE | 2019-05-12 07:55 | NUR ---
DIRECTOR OF PROFESSIONAL SERVICES CLOSING NOTES PATIENT ASLEEP IN BED, EASY TO AWAKEN. A/O X 2-3. ON 2L NC. NO S/S OF SOB AND NO COMPLAINTS OF PAIN AT THIS TIME. TELE MONITOR READING SINUS TACH 98. IV ON LEFT HAND, SIZE 20, INTACT & PATENT, HEP LOCKED. SCD PRESENT B/L. BED LOCKED, ALARM ON, SIDE RAILS X2, CALL LIGHT WITHIN REACH. WILL ENDORSE TO DAY SHIFT NURSE TO FOLLOW PLAN OF CARE.
[2019-05-12 08:00] VITALS: BP 109/63
[2019-05-12 08:12] LABS: CREATININE 0.9 mg/dL (0.6-1.3); MAGNESIUM 2.3 mg/dL (1.8-2.4); POTASSIUM 3.7 mmol/L (3.5-5.1)
[2019-05-12 16:00] VITALS: BP 119/69
[2019-05-12] MEDS: MIRTAZAPINE 15 MG TABLET PO SCH (18:23)
[2019-05-12] MEDS: SIMVASTATIN 20 MG TABLET PO SCH (18:24)
--- NOTE | 2019-05-12 19:48 | NUR ---
PATIENT IN BED, EASY TO AWAKEN. A/O X 1-2. ON 2L NC. NO S/S OF SOB AND NO COMPLAINTS OF PAIN AT THIS TIME. IV TO THE LEFT HAND G 20, INTACT & PATENT,H/L. SCD PRESENT B/L. BED LOCKED, BED ALARM ACTIVATED, SIDE RAILS X2, CALL LIGHT WITHIN REACH. WILL ENDORSE TO NEXT SHIFT NURSE TO FOLLOW PLAN OF CAR
--- NOTE | 2019-05-12 19:50 | NUR ---
RN NOTES RECEIVED PATIENT ASLEEP, NOT IN DISTRESS, SAFETY MEASURES IN PLACE, REPOSITIONED FOR COMFORT, IV ACCESS INTACT AND PATENT, WILL CONTINUE TO MONITOR ACCORDINGLY.
[2019-05-12 20:42] VITALS: BP 115/70
[2019-05-13] MEDS: ALBUTEROL FS 2.5 MG/3 ML VIAL.NEB NEB SCH ×4 (02:38→20:22)
[2019-05-13 07:30] VITALS: BP 106/64
--- NOTE | 2019-05-13 07:31 | NUR ---
RN NOTES ALL NEEDS ATTENDED AND MET, ABLE TO REST AND SLEPT WITH LONG INTERVALS, SAFETY MEASURES IN PLACE, ASPIRATION PRECAUTION EMPHASIZED, KEEP CLEAN DRY, REPOSITIONED FOR COMFORT, ENDORSED TO AM NURSE FOR CONTINUITY OF CARE.
[2019-05-13] MEDS: ACETYLCYSTEINE 20% SOLN 800 MG/4 ML VIAL NEB SCH ×3 (07:35→22:52)
[2019-05-13 08:00] VITALS: BP 106/64
[2019-05-13] MEDS: MIRTAZAPINE 15 MG TABLET PO SCH (18:05)
[2019-05-13] MEDS: SIMVASTATIN 20 MG TABLET PO SCH (18:05)
--- NOTE | 2019-05-13 18:41 | NUR ---
PATIENT IN BED, EASY TO AWAKEN,SR. MANAGER AT BEDSIDE. A/O X 1-2. ON 2L NC. NO S/S OF SOB AND NO S/S OF PAIN AT THIS TIME. IV TO THE LEFT HAND G 20, INTACT & PATENT,H/L. SCD PRESENT B/L. BED LOCKED, BED ALARM ACTIVATED, SIDE RAILS X2, CALL LIGHT WITHIN REACH. WILL ENDORSE TO NEXT SHIFT NURSE TO FOLLOW PLAN OF CAR
[2019-05-13 20:00] VITALS: BP 102/60
--- NOTE | 2019-05-13 20:36 | NUR ---
MS RN OPENING NOTES: RECEIVED PATIENT IN BED AT 1910,AWAKE. HOB ELEVATED AT ALL TIMES. NO SOB NOTED. NO COMPLAIN OF PAIN. CALL LIGHT WITHIN REACH. BED IN LOWEST AND LOCKED POSITION. V/S TAKEN BY RUIZEBRIEVELINE. RECORDED.
[2019-05-13 20:47] VITALS: BP 102/60
[2019-05-14] MEDS: ALBUTEROL FS 2.5 MG/3 ML VIAL.NEB NEB SCH ×4 (02:03→19:35)
[2019-05-14] MEDS: ACETYLCYSTEINE 20% SOLN 800 MG/4 ML VIAL NEB SCH ×3 (07:35→22:50)
--- NOTE | 2019-05-14 07:39 | NUR ---
MS RN CLOSING NOTES: PATIENT IN BED, AWAKE , A/O X2. NO COMPLAIN OF PAIN DURING SHIFT. NO SOB NOTED. CALL LIGHT WITHIN REACH. BED IN LOWEST AND LOCKED POSITION.
--- NOTE | 2019-05-14 07:40 | NUR ---
MS RN OPENING NOTES RECEIVED PATIENT IN BED, AWAKE, A/O X3. PATIENT ON OXYGEN THERAPY AT 2 LPM VIA NASAL CANULA. PATIENT DENIES PAIN AT THIS TIME. L HAND GAUGE # 20 PRESENT AND INTACT, FLUSHING WELL. SAFETY PRECAUTIONS IN PLACE: BED IN LOW POSITION AND LOCKED, RAILS UP X2, CALL LIGHT WITHIN REACH. WILL CONTINUE TO MONITOR PATIENT.
[2019-05-14 08:00] VITALS: BP 104/59
[2019-05-14] MEDS: IPRATROPIUM NEB FS 0.5 MG/2.5 ML AMPUL.NEB NEB SCH ×4 (15:19→22:50)
[2019-05-14 16:00] VITALS: BP 114/63
[2019-05-14] MEDS: SIMVASTATIN 20 MG TABLET PO SCH (17:31)
[2019-05-14] MEDS: MIRTAZAPINE 15 MG TABLET PO SCH (17:31)
--- NOTE | 2019-05-14 18:41 | NUR ---
MS RN CLOSING NOTES PATIENT IN BED, AWAKE, A/O X2. PATIENT ON OXYGEN THERAPY AT 2 LPM VIA NASAL CANULA. PER PATIENT NO PAIN AT THIS TIME. L HAND GAUGE # 20 PRESENT AND INTACT, FLUSHING WELL. ALL NEEDS ATTENDED TO TODAY. SAFETY PRECAUTIONS IN PLACE: BED IN LOW POSITION AND LOCKED, RAILS UP X2, CALL LIGHT WITHIN REACH. WILL ENDORSE TO MOLTEN IRON POURER NURSE.
--- NOTE | 2019-05-14 19:45 | NUR ---
RN OPENING NOTES RECEIVED REPORT FROM DAYSHIFT RN. FOUND Pt ASLEEP IN BED, EASILY AWAKENED BY TOUCH. NO S/S OF ACUTE DISTRESS OR SOB NOTED. PER REPORT Pt IS A/OX2, CONFUSED, BUT IS COMPLIANT AND COOPERATIVE WITH CARE. IV ACCESS ON [facility] #20G, SL. SAFETY MEASURES IN PLACE. BED LOW, LOCKED, HOB ELEVATED, SIDE RAILS UP, CALL LIGHT AND BEDSIDE TABLE WITHIN REACH. BED ALARM ON. WILL CONTINUE TO MONITOR Pt's CONDITION AND SAFETY THROUGHOUT THE SHIFT.
[2019-05-14 20:43] VITALS: BP 116/78
[2019-05-15] MEDS: ALBUTEROL FS 2.5 MG/3 ML VIAL.NEB NEB SCH ×3 (00:45→11:50)
[2019-05-15] MEDS: IPRATROPIUM NEB FS 0.5 MG/2.5 ML AMPUL.NEB NEB SCH ×4 (02:42→15:11)
--- NOTE | 2019-05-15 07:10 | NUR ---
RN CLOSING NOTES NO SIGNIFICANT CHANGES IN Pt's CONDITION. Pt IS RESTING COMFORTABLY IN BED. NO S/S OF ACUTE DISTRESS OR SOB NOTED. ALL NEEDS MET AND ATTENDED TO. SAFETY MEASURES IN PLACE. WILL ENDORSE TO DAYSHIFT RN FOR Pt's SURINDER.
[2019-05-15 08:00] VITALS: BP 96/55
--- NOTE | 2019-05-15 08:02 | NUR ---
MS RN OPENING NOTES RECEIVED PATIENT IN BED, A/O X 2. PATIENT ON ROOM AIR. BREATHING EVEN, SYMMETRICAL, NO S/S OF SOB PRESENT. NO S/S OF PAIN SUCH FACIAL GRIMACING, MOANING OR GUARDING. L HAND SL # 20 PRESENT AND INTACT. SAFETY PRECAUTIONS IN PLACE; BED IN LOW POSITION AND LOCKED, RAILS UP X 2, CALL LIGHT WITHIN REACH. WILL CONTINUE TO MONITOR PATIENT.
[2019-05-15] MEDS: ACETYLCYSTEINE 20% SOLN 800 MG/4 ML VIAL NEB SCH ×2 (08:28→15:11)
[2019-05-15 16:28] VITALS: BP 102/50
--- NOTE | 2019-05-15 16:44 | NUR ---
MS EXPLOSIVE MAN NOTES PATIENT DISCHARGED HOME WITH HOME HEALTH IN MEDICALLY STABLE CONDITION. PATIENT BREATHING ON ROOM AIR SATURATING AT 93-95%. PATIENT DENIES PAIN. ALL VITAL SIGNS WITHIN NORMAL LIMITS. DISCHARGE TEACHING PROVIDED TO PATIENT'S CAREGIVER. DISCHARGE INSTRUCTIONS AND MEDICATION LIST EXPLAINED. PATIENT CAREGIVER VERBALIZED UNDERSTANDING. PAPERWORK SIGNED. VALUABLE FORM ACCOUNTED FOR AND SIGNED WELL. IV LINE AND WRISTBAND REMOVED BEFORE PATIENT LEFT THE FLOOR. PATIENT LEFT THE UNIT IN A PRIVATE WHEELCHAIR ACCOMPANIED BY CAREGIVER AT 1630.
== END 2019-05-15 17:30 | disposition home health service (06) | DRG 871 ==
LOC: ER 16:59 → MED 19:48 → TELE 05-11 18:54 → MED 05-12 08:20
PROVIDERS: ADMIT Internal Medicine; ATTEND Internal Medicine
DX: A41.9 Sepsis, unspecified organism (principal); J15.9 Unspecified bacterial pneumonia; Z85.841 Personal history of malignant neoplasm of brain; Z85.118 Personal history of other malignant neoplasm of bronchus and lung; E78.5 Hyperlipidemia, unspecified; F03.90 Unspecified dementia, unspecified severity, without behavioral disturbance, psychotic disturbance, mood disturbance, and anxiety; J20.9 Acute bronchitis, unspecified; Z87.891 Personal history of nicotine dependence; Z92.3 Personal history of irradiation; Z87.440 Personal history of urinary (tract) infections
CPT/HCPCS: 31720; 36415; 36600; 71045-TC; 71250-TC; 80048-TC; 80053-TC; 80061-TC; 80076-TC; 81000-TC; 82803-TC; 83605-TC; 83735-TC; 84100-TC; 84484-TC; 85025-TC; 85378-TC; 85730-TC; 87040-TC; 87081-TC; 87086-TC; 87186-TC; 94760-TC; 94799-TC; G0378; J0692; J1200; J1940; J2185; J3370; J3475; J7030; J7060

== ENCOUNTER 2020-07-21 16:09 | Inpatient (IN) | payer MEDICARE, BC ==
[2020-07-21] VITALS (8 sets, daily range): BP systolic 66–90; BP diastolic 23–55
[~2020-07-21] VITALS: Ht 157.5 cm; Wt 52.8 kg
[~2020-07-21 16:09] MED LIST changes: -MERO1VIA IV; +MIRT-121 PO; -MIRT15TA PO
[2020-07-21] MEDS ORDERED: IV NS 0.9% 1,000 ML BAG IV ONE (16:30)
--- NOTE | 2020-07-21 16:31 | NUR ---
CHERIE [place] [phone]
[2020-07-21 18:07] LABS: BASOPHILS % (AUTO) 0.3 % (0.0-2.0); LYMPHOCYTES # (AUTO) 1.1 /CMM (0.8-4.8); MONOCYTES # (AUTO) 0.7 /CMM (0.1-1.30); NEUTROPHILS % (AUTO) 83.2 % (43.0-81.0)
[2020-07-21 18:14] LABS: EOSINOPHILS % (AUTO) 1.3 % (0.0-6.0); HEMATOCRIT 25 % (33-45); LYMPHOCYTES % (AUTO) 9.4 % (20.0-44.0); MEAN CORPUSCULAR HGB CONC 25 g/dl (31.0-36.0); MEAN CORPUSCULAR VOLUME 76 fL (82-100); MONOCYTES % (AUTO) 5.8 % (2.0-12.0); NEUTROPHILS # (AUTO) 9.6 /CMM (1.8-8.9); PLATELET COUNT (AUTO) 315 /CMM (150-450); RED BLOOD CELL COUNT(AUTO) 3.21 MIL/uL (4.0-5.2); WHITE BLOOD COUNT (AUTO) 11.5 K/uL (4.3-11.0)
[2020-07-21 18:23] LABS: HEMOGLOBIN 6.2 g/dL (11.5-14.8)
[2020-07-21 18:26] LABS: CALCIUM, SERUM 8.6 mg/dL (8.5-10.1); CARBON DIOXIDE 15 mmol/L (21-32); CHLORIDE 114 mmol/L (98-107); CREATININE 3.3 mg/dL (0.6-1.3); GLUCOSE 87 mg/dL (74-106); SODIUM SERUM 144 mmol/L (136-145)
--- NOTE | 2020-07-21 18:29 | NUR ---
LAB CALLED POTWALTER IS 8.[address] GASTELUM MADE AWARE.
[2020-07-21] MEDS ORDERED: SODIUM POLYSTYRENE SULFONATE 15 G/60 ML BOTTLE PO ONE (18:30)
[2020-07-21] MEDS ORDERED: CALCIUM CHLORIDE 1,000 MG/10 ML DISP.SYRIN IV ONE (18:30)
[2020-07-21] MEDS ORDERED: FUROSEMIDE 40 MG/4 ML VIAL IV ONE (18:30)
[2020-07-21] MEDS ORDERED: SODIUM BICARBONATE SYR 50 MEQ/50 ML DISP.SYRIN IV ONE (18:30)
[2020-07-21] MEDS ORDERED: MIDODRINE HCL (5MG) 5 MG TABLET PO SCH (18:30)
[2020-07-21 18:32] LABS: ALANINE AMINOTRANSFERASE < 6 U/L (12-78); ALKALINE PHOSPHATASE 171 U/L (46-116); ASPARTATE AMINOTRANSFERASE 21 U/L (15-37); BILIRUBIN,DIRECT 0.1 mg/dL (0.0-0.2); BILIRUBIN,TOTAL 0.2 mg/dL (0.2-1.0); TOTAL PROTEIN, SERUM 6.9 g/dL (6.4-8.2)
[2020-07-21 18:34] LABS: POTASSIUM 8.8 mmol/L (3.5-5.1)
[2020-07-21 18:35] LABS: ALBUMIN 1.3 g/dL (3.4-5.0); UREA NITROGEN, BLOOD 104 mg/dL (7-18)
[2020-07-21] MEDS ORDERED: ALBU2.5V38 IH (18:56)
[2020-07-21] MEDS ORDERED: TIOT4MIS5 INH (18:56)
[2020-07-21] MEDS ORDERED: IPRA0.2S9 IH (18:56)
--- NOTE | 2020-07-21 19:05 | NUR ---
ORDERS RECEIVED. MD MADE AWARE THAT PT'S BP IS STILL 78/52. MD ORDERED TO HOLD OF ON ORDERS TILL FURTHER ORDER
--- NOTE | 2020-07-21 19:26 | NUR ---
IN AND OUT CATH DONE TO COLLECT URINE BUT NO URINE CAME OUT. PT IS STILL RECEIVED THE REST OF THE 1.5L NS. MADE AWARE.
[2020-07-21 19:28] LABS: EOSINOPHILS % (MANUAL) 3 % (0-4); LYMPHOCYTES % (MANUAL) 12 % (16-48); MONOCYTES % (MANUAL) 3 % (0-11.0); NEUTROPHILS % (MANUAL) 82 (42-76)
--- NOTE | 2020-07-21 19:49 | NUR ---
ER TALKING TO DR. MAYER REGARDING PT ADMISSION.
--- NOTE | 2020-07-21 20:06 | NUR ---
COVID IS NEGATIVE
[2020-07-21] MEDS ORDERED: SODIUM POLYSTYRENE SULFONATE 15 G/60 ML BOTTLE ONE (20:21)
[2020-07-21] MEDS ORDERED: SODIUM BICARBONATE SYR 50 MEQ/50 ML DISP.SYRIN ONE (20:21)
[2020-07-21] MEDS ORDERED: CALCIUM CHLORIDE 1,000 MG/10 ML DISP.SYRIN ONE (20:21)
[2020-07-21] MEDS ORDERED: FUROSEMIDE 20 MG/2 ML VIAL ONE (20:21)
[2020-07-21] MEDS ORDERED: ALBUTEROL FS 2.5 MG/3 ML VIAL.NEB NEB ONE (20:30)
[2020-07-21] MEDS ORDERED: DEXTROSE 50%-WATER 50 ML DISP.SYRIN IV ONE (20:30)
[2020-07-21] MEDS ORDERED: INSULIN REGULAR, HUMAN 100 UNIT/ML 10 ML VIAL SQ ONE (20:30)
[2020-07-21] MEDS ORDERED: ALBUTEROL FS 2.5 MG/3 ML VIAL.NEB ONE (20:55)
[2020-07-21] MEDS ORDERED: LEVOFLOXACIN 500 MG /D5W 100ML 500 MG in PREMIX 1 EA IV SCH (21:00)
[2020-07-21] MEDS ORDERED: IV NS 0.9% 1,000 ML IV PRN (21:00)
[2020-07-21] MEDS ORDERED: ZOLPIDEM TARTRATE 5 MG TABLET PO PRN (21:00)
[2020-07-21] MEDS ORDERED: ONDANSETRON HCL/PF 4 MG/2 ML VIAL IVP PRN (21:00)
[2020-07-21] MEDS ORDERED: MAGNESIUM HYDROXIDE 30 ML UDC PO PRN (21:00)
[2020-07-21] MEDS ORDERED: ACETAMINOPHEN 325 MG TABLET PO PRN (21:00)
[2020-07-21] MEDS ORDERED: Z GUARD REMEDY 2 OZ OINT TP PRN (21:00)
[2020-07-21] MEDS ORDERED: MAG HYDROX/AL HYDROX/SIMETH 30 ML UDC PO PRN (21:00)
[2020-07-21] MEDS ORDERED: IV NS 0.9% 500 ML BAG IV ONE (21:30)
--- NOTE | 2020-07-21 21:35 | NUR ---
bt started lfa 20g
--- NOTE | 2020-07-21 21:52 | NUR ---
VITAL SIGN CHECK 15MIN AFTER BT STARTED. NO NOTED ASE OR REACTION. VSS
[2020-07-21] MEDS ORDERED: TIGECYCLINE 100 MG in IV D5W 100 ML IV SCH (22:00)
--- NOTE | 2020-07-21 22:02 | NUR ---
report given to pauile porter for temo
--- NOTE | 2020-07-21 22:17 | NUR ---
pt transported to unit on [facility] with emt and rn at bedside w. acls protocol. nad noted during transport.
--- NOTE | 2020-07-21 22:20 | NUR ---
CONSUMER INSIGHTS SPECIALIST RCD PT FROM ER W/DX HYPERKALEMIA; POTASSIUM 8.8. PT TEMP 90 RECTALLY. BP 66/23. PT IS ON ROOM AIR. NONVERBAL. WOUND NOTED TO SACRUM, BACK AND NECK.WOUND CARE CONS REQUESTED. PRBC TRANSFUSING AT THIS TIME.
--- NOTE | 2020-07-21 22:40 | NUR ---
DISEASE AND INSECT CONTROL BOSS PT W/BP 70-80. RCD ORDER FOR LEVOPHED. PT HAS POOR IV ACCESS REQUESTED PICC LINE. MULTIPLE CALLS TO DPOA FOR CONSENT; CALLS NOT RETURNED.
[2020-07-21] MEDS ORDERED: NOREPINEPHRINE 8MG/250ML RTU 250 ML IV ONE (22:43)
[2020-07-21] MEDS: NOREPINEPHRINE 8 MG in IV NS 0.9% 242 ML IV PRN (22:47)
[2020-07-21] MEDS ORDERED: TIGECYCLINE 100 MG in IV D5W 100 ML IV ONE (23:00)
[2020-07-21 23:24] LABS: CARBON DIOXIDE 16 mmol/L (21-32); CHLORIDE 118 mmol/L (98-107); CREATININE 3.3 mg/dL (0.6-1.3); GLUCOSE 113 mg/dL (74-106); SODIUM SERUM 147 mmol/L (136-145)
[2020-07-21] MEDS ORDERED: AZITHROMYCIN 500 MG in IV D5W 250 ML IV ONE (23:30)
--- NOTE | 2020-07-21 23:30 | NUR ---
HOURLY SIGN LANGUAGE INTERPRETER POTASSIUM REMAINS ELEVATED 7.8 RCD ORDERS FROM .
[2020-07-21 23:31] LABS: POTASSIUM 7.8 mmol/L (3.5-5.1); UREA NITROGEN, BLOOD 98 mg/dL (7-18)
--- NOTE | 2020-07-21 23:55 | NUR ---
HOSE TENDER BLOOD TRANSFUSION COMPLETE. NO IMMEDIATE SIGNS OF ADVERSE REACTIONS.
[2020-07-22] VITALS (93 sets, daily range): BP systolic 48–162; BP diastolic 24–99
[2020-07-22] MEDS ORDERED: INSULIN REGULAR, HUMAN 100 UNIT/ML 3 ML VIAL IV ONE
[2020-07-22] MEDS ORDERED: ALBUTEROL FS 2.5 MG/3 ML VIAL.NEB NEB ONE
[2020-07-22] MEDS ORDERED: Calcium Gluconate 0.465 MEQ/ML VIAL IV ONE
[2020-07-22] MEDS ORDERED: DEXTROSE 50%-WATER 50 ML DISP.SYRIN IVP ONE
[2020-07-22] MEDS ORDERED: INSULIN REGULAR, HUMAN 100 UNIT/ML 3 ML VIAL ONE (00:08)
[2020-07-22] MEDS ORDERED: AZITHROMYCIN 500 MG VIAL ONE (00:09)
[2020-07-22] MEDS ORDERED: SODIUM POLYSTYRENE SULFONATE 15 G/60 ML BOTTLE ONE (00:10)
[2020-07-22] MEDS: NOREPINEPHRINE 8 MG in IV NS 0.9% 242 ML IV PRN (04:19)
[2020-07-22 04:53] LABS: BASOPHILS % (AUTO) 0.2 % (0.0-2.0); EOSINOPHILS % (AUTO) 0.5 % (0.0-6.0); HEMATOCRIT 36 % (33-45); HEMOGLOBIN 9.7 g/dL (11.5-14.8); LYMPHOCYTES # (AUTO) 1.6 /CMM (0.8-4.8); LYMPHOCYTES % (AUTO) 14.5 % (20.0-44.0); MEAN CORPUSCULAR HGB CONC 27 g/dl (31.0-36.0); MEAN CORPUSCULAR VOLUME 80 fL (82-100); MONOCYTES # (AUTO) 0.7 /CMM (0.1-1.30); MONOCYTES % (AUTO) 6.1 % (2.0-12.0); NEUTROPHILS # (AUTO) 8.9 /CMM (1.8-8.9); NEUTROPHILS % (AUTO) 78.7 % (43.0-81.0); PLATELET COUNT (AUTO) 319 /CMM (150-450); RED BLOOD CELL COUNT(AUTO) 4.53 MIL/uL (4.0-5.2); WHITE BLOOD COUNT (AUTO) 11.3 K/uL (4.3-11.0)
[2020-07-22 05:05] LABS: CALCIUM, SERUM 9.4 mg/dL (8.5-10.1); CARBON DIOXIDE 13 mmol/L (21-32); CHLORIDE 118 mmol/L (98-107); CREATININE 3.2 mg/dL (0.6-1.3); GLUCOSE 81 mg/dL (74-106); MAGNESIUM 2.8 mg/dL (1.8-2.4); SODIUM SERUM 148 mmol/L (136-145)
[2020-07-22 05:10] LABS: POTASSIUM 8.1 mmol/L (3.5-5.1); UREA NITROGEN, BLOOD 90 mg/dL (7-18)
[2020-07-22 05:13] LABS: CHOLESTEROL 85 mg/dL (<200); HDL CHOLESTEROL 26 mg/dL (40-60); LDL 32 mg/dL (0-99); THYROID STIMULATING HORMONE 10.786 uIU/mL (0.358-3.74); TRIGLYCERIDES 150 mg/dL (30-150)
--- NOTE | 2020-07-22 06:41 | NUR ---
CITY DISTRIBUTION CLERK PT TEMP REMAINED LOW 92 RECTALLY. COVERED PT WITH WARM BLANKETS NO DULCE HUGGER AVAILABLE AT THIS TIME.
--- NOTE | 2020-07-22 07:30 | NUR ---
RN OPENING NOTES RECEIVED PATIENT AWAKE BUT NON VERBAL, EYES TRACKING TO VOICE, SATURATING WELL ON RA, NOT IN ANY RESPIRATORY DISTRESS, NSR ON TELE MONITOR, NG TUBE CLAMPED, ESCALONA DRAINING TO GRAVITY, PERIPHERAL LINES ON L, WRIST, R FA AND RIGHT EJ. LEVO RUNNING AT 0.6 AND N/S AT 125. EXTRAVASATION NOTED ON LEFT HAND. OTHER SAFETY CHECKS IN PLACE. WILL CONTINUE TO MONITOR.
--- NOTE | 2020-07-22 08:14 | NUR ---
WOUND CARE CONSULT: PT PRESENTS WITH MULTIPLE SKIN ISSUES PRESENT ON ADMISSION INCLUDING AREA OF NECK DISCOLORATION, SACRAL SCARRING WITH OPEN AREA AND MIDBACK INTACT DEEP TISSUE INJURY. THERE IS DISCOLORATION OF LEFT HAND AND WRIST. RECOMMEND SURGICAL CONSULT. DR AMANDA NOTIFIED OF CONSULT REQUEST. RECOMMENDATIONS MADE FOR SKIN PROTECTION. DISCUSSED WITH NURSING STAFF. FIRST STEP LOW AIRLOSS MATTRESS IS ON ORDER. MD IN AGREEMENT WITH PLAN OF CARE. Addendum: 07/22/20 at 0818 by EVE BASS WNDNU Amended: Links added.
[2020-07-22] MEDS: HYDROCODONE/APAP 5/325MG TABLET PO PRN ×2 (08:17→16:01)
[2020-07-22] MEDS: NOREPINEPHRINE 32 MG in IV NS 0.9% 242 ML IV PRN ×2 (08:18→17:20)
[2020-07-22] MEDS ORDERED: PANTOPRAZOLE 40 MG VIAL IV SCH (09:00)
[2020-07-22] MEDS ORDERED: PHENTOLAMINE MESYLATE IV ONE ×2 (09:00→09:30)
[2020-07-22] MEDS ORDERED: MISCELLANEOUS MED 1 EA EA XX ONE (09:30)
[2020-07-22] MEDS ORDERED: SODIUM POLYSTYRENE SULFONATE 15 G/60 ML BOTTLE PO ONE ×2 (09:30)
[2020-07-22] MEDS ORDERED: INSULIN REGULAR, HUMAN 100 UNIT/ML 3 ML VIAL SQ ONE (09:30)
[2020-07-22] MEDS ORDERED: DEXTROSE 50%-WATER 50 ML DISP.SYRIN IV ONE (09:30)
[2020-07-22] MEDS ORDERED: Calcium Gluconate 1GM/10ML 4.65 MEQ in IV D5W 50 ML IV ONE (09:30)
[2020-07-22] MEDS: HYDROCORTISONE SOD SUCCINATE 100 MG/2 ML VIAL IV SCH ×3 (10:16→21:29)
[2020-07-22] MEDS: IV NS 0.9% 1,000 ML IV SCH ×3 (10:17→18:13)
--- NOTE | 2020-07-22 10:30 | NUR ---
RN NOTE PHENTOLAMINE WAS ORDERED FOR EXTRAVASATION. HOWEVER PER PHARMACY, DRUG IS NOT AVAILABLE. CLOSEST AVAILABLE ALTERNATIVE IS NITROGLYCERIN OINTMENT. RN WILL APPLY WHEN PTS BP IS AT A MORE SUITABLE RANGE.
[2020-07-22] MEDS ORDERED: TIGECYCLINE 50 MG in IV D5W 50 ML IV SCH ×2 (11:00→15:00)
[2020-07-22] MEDS ORDERED: NITROGLYCERIN 30 GM TUBE TP PRN (11:00)
--- NOTE | 2020-07-22 11:30 | NUR ---
RN NOTE PER PHARMACY, THEY WILL STILL CONFIRM WITH MD THE INDICATION FOR IV TIGECYCLINE BEFORE SUPPLYING DRUG.
[2020-07-22] MEDS: Sodium Bicarbonate 100 MEQ in IV D5/0.45 NACL 1,000 ML IV PRN ×2 (12:12→20:47)
[2020-07-22 13:30] LABS: BILIRUBIN,URINE SMALL (NEGATIVE); COLOR,URINE RED (YELLOW); LEUKOCYTE ESTERASE ,URINE MODERATE (NEGATIVE); NITRITE, URINE POSITIVE (NEGATIVE); PH,URINE 7.5 (5.0-8.0); PROTEIN,URINE >=300 mg/dl (NEGATIVE); UGLUCOSE NEGATIVE (NEGATIVE); UROBILINOGEN,URINE 0.2 EU/dL (0.2)
[2020-07-22 13:56] LABS: CREATININE, URINE < 13.0 MG/DL (30.0-125.0); URINE SODIUM, RANDOM 137 mmol/l (40-220)
[2020-07-22 14:05] LABS: OCCULT BLOOD STOOL NEGATIVE (NEGATIVE)
[2020-07-22 14:12] LABS: URINE TOTAL PROTEIN 1025.4 mg/dL (0-11.9)
[2020-07-22 14:28] LABS: EOSINOPHILS % (AUTO) 0.1 % (0.0-6.0); HEMATOCRIT 31 % (33-45); HEMOGLOBIN 8.4 g/dL (11.5-14.8); LYMPHOCYTES # (AUTO) 0.4 /CMM (0.8-4.8); LYMPHOCYTES % (AUTO) 2.3 % (20.0-44.0); MEAN CORPUSCULAR HGB CONC 28 g/dl (31.0-36.0); MEAN CORPUSCULAR VOLUME 79 fL (82-100); MONOCYTES # (AUTO) 0.6 /CMM (0.1-1.30); MONOCYTES % (AUTO) 3.5 % (2.0-12.0); NEUTROPHILS # (AUTO) 16.9 /CMM (1.8-8.9); NEUTROPHILS % (AUTO) 94.1 % (43.0-81.0); PLATELET COUNT (AUTO) 205 /CMM (150-450); RED BLOOD CELL COUNT(AUTO) 3.88 MIL/uL (4.0-5.2)
[2020-07-22 14:58] LABS: BACTERIA,URINE 3+ /HPF (None Seen); RBC,URINE TOO NUMEROUS TO COUN /HPF (0-2); SQUAMOUS EPITHELIAL CELL,UR 0-2 /HPF (None Seen); WBC,URINE 81-100 /HPF (0-3)
[2020-07-22 15:02] LABS: EOSINOPHIL,URINE None Seen
[2020-07-22] MEDS ORDERED: ALBUMIN 25% 25 GM in PREMIX 1 EA IV PRN (15:30)
[2020-07-22] MEDS ORDERED: VANCOMYCIN 1.25 GM in IV D5W 250 ML IV ONE (16:00)
[2020-07-22] MEDS ORDERED: VANCOMYCIN 500 MG in IV D5W 100 ML IV PRN (16:00)
[2020-07-22] MEDS ORDERED: VANCOMYCIN 1 GM in IV D5W 250 ML IV ONE (16:00)
[2020-07-22] MEDS ORDERED: AZTREONAM 2 G in IV NS 0.9% 100 ML IV ONE (16:00)
[2020-07-22] MEDS ORDERED: PHENYLEPHRINE 50 MG in IV NS 0.9% 245 ML IV PRN (17:30)
[2020-07-22 17:34] LABS: BAND % (MANUAL) 3 % (0.0-5.0); LYMPHOCYTES % (MANUAL) 4 % (16-48); NEUTROPHILS % (MANUAL) 93 (42-76)
[2020-07-22] MEDS ORDERED: MORPHINE SULFATE INJ 2 MG/ML DISP.SYRIN IV PRN (18:00)
[2020-07-22 18:05] LABS: CALCIUM, SERUM 7.2 mg/dL (8.5-10.1); CARBON DIOXIDE 20 mmol/L (21-32); CHLORIDE 114 mmol/L (98-107); CREATININE 2.1 mg/dL (0.6-1.3); GLUCOSE 221 mg/dL (74-106); POTASSIUM 5.3 mmol/L (3.5-5.1); SODIUM SERUM 146 mmol/L (136-145); UREA NITROGEN, BLOOD 59 mg/dL (7-18)
--- NOTE | 2020-07-22 18:59 | NUR ---
RN CLOSING NOTES PATIENT AWAKE BUT NON VERBAL, SATURATIONS NOT DETECTABLE SINCE DIALYSIS, NOT IN ANY RESPIRATORY DISTRESS BUT PUT ON OXYGEN MASK AT 6L, NSR ON TELE MONITOR, ON BEAR HUGGER AND DVT PUMPS. NG TUBE CLAMPED, ESCALONA DRAINED 20MLS THIS SHIFT, PICC LINE RIGHT IJ. LEVO RUNNING AT 1.0, N/S AT 250, SODIUM BICARB AT 125, AND [place] IN PROGRESS. SAFETY CHECKS IN PLACE. AGONAL BREATHING NOTED. WILL UPDATE FAMILY. WILL ENDORSE TO NIGHT RN FOR CONTINUITY OF CARE..
--- NOTE | 2020-07-22 20:26 | NUR ---
THREAD WINDER CHERIE [place] AND AT BEDSIDE.
[2020-07-23] VITALS: BP 120/105
[2020-07-23] MEDS ORDERED: MORPHINE SULFATE INJ 2 MG/ML DISP.SYRIN IV PRN
[2020-07-23 00:30] VITALS: BP 90/67
[2020-07-23] MEDS ORDERED: MORPHINE SULFATE INJ 4 MG/ML DISP.SYRIN IM PRN (00:30)
[2020-07-23] MEDS ORDERED: LORAZEPAM INJ 2 MG/ML VIAL IV PRN (00:30)
[2020-07-23 00:45] VITALS: BP 114/67
--- NOTE | 2020-07-23 00:58 | NUR ---
DRAPERY CUTTER DR MAYER SPOKE WITH DPOA NEPHRANJIT DUEÑAS AND NEPHEW WOULD LIKE TO PROCEED WITH COMFORT CARE FOCUSED CARE. ALL IV AND TREATMENTS STOPPED AT THIS TIME.
[2020-07-23 01:00] VITALS: BP 114/67
[2020-07-23] MEDS ORDERED: MORPHINE SULFATE INJ 4 MG/ML DISP.SYRIN IV PRN (01:30)
--- NOTE | 2020-07-23 01:40 | NUR ---
HEALTH PROMOTER PT NOTED BECOMING QUEENIE THEN ASYSTOLE ON MONITOR. UNABLE TO PALPATE PULSES. NO READING FOR BP. NO RESPIRATIONS NOTED. RENDERED POST MORTEM CARE.
--- NOTE | 2020-07-23 01:50 | NUR ---
TOP PRECIPITATOR OPERATOR HELPER NOTIFIED NANCIE NEXT OF KIN; HE WILL CALL IN THE MORNING W/MORTUARY INFORMATION.
--- NOTE | 2020-07-23 01:54 | NUR ---
MANAGER TRANSPORT BODY RELEASED BY [facility] REF # [id number] S/W DIPESH
--- NOTE | 2020-07-23 02:26 | NUR ---
PRONOUNCEMENT OF : CODE STATUS:DO NOT RESUSCITATE,DO NOT INTUBATE. UNRESPONSIVE TO ANY FORM OF STIMULI. PUPILS ARE FIXED AND DILATED. ALL EXTREMITIES ARE FLACCID.APNEIC.RESPIRATIONS ABSENT. EKG ASYSTOLE X2 LEADS. ABSENT HEART TONES. PERIPHERAL PULSES ARE ABSENT.NO SIGNS OF LIFE. PRONOUNCED AT 0140. BY:ARIELLE KINGSLEY RN/BSN
[2020-07-23] MEDS ORDERED: AZTREONAM 1 G in IV NS 0.9% 100 ML IV SCH (23:00)
== END 2020-07-23 01:40 | DRG 871 ==
LOC: ER 16:17 → ICU 20:16
PROVIDERS: ADMIT Student in an Organized Health Care Education/Training Program; ATTEND Nurse Practitioner Acute Care
PROC: 30233N1 Transfusion of Nonautologous Red Blood Cells into Peripheral Vein, Percutaneous Approach (ICD-10-PCS; 2020-07-21)
PROC: 02HV33Z Insertion of Infusion Device into Superior Vena Cava, Percutaneous Approach (ICD-10-PCS; principal; 2020-07-22)
PROC: B548ZZA Ultrasonography of Superior Vena Cava, Guidance (ICD-10-PCS; 2020-07-22)
PROC: 02HV33Z Insertion of Infusion Device into Superior Vena Cava, Percutaneous Approach (ICD-10-PCS; 2020-07-22)
PROC: B518YZA Fluoroscopy of Superior Vena Cava using Other Contrast, Guidance (ICD-10-PCS; 2020-07-22)
PROC: 5A1D70Z Performance of Urinary Filtration, Intermittent, Less than 6 Hours Per Day (ICD-10-PCS; 2020-07-22)
DX: A41.9 Sepsis, unspecified organism (principal); E43 Unspecified severe protein-calorie malnutrition; N17.0 Acute kidney failure with tubular necrosis; R65.21 Severe sepsis with septic shock; J15.6 Pneumonia due to other Gram-negative bacteria; G92 Toxic encephalopathy; J98.11 Atelectasis; J90 Pleural effusion, not elsewhere classified; E87.5 Hyperkalemia; Z85.841 Personal history of malignant neoplasm of brain; R62.7 Adult failure to thrive; Z51.5 Encounter for palliative care; Z68.21 Body mass index [BMI] 21.0-21.9, adult; D64.9 Anemia, unspecified; E03.9 Hypothyroidism, unspecified; E78.5 Hyperlipidemia, unspecified; Z66 Do not resuscitate; Z85.118 Personal history of other malignant neoplasm of bronchus and lung; Z87.891 Personal history of nicotine dependence; E88.09 Other disorders of plasma-protein metabolism, not elsewhere classified; Z92.3 Personal history of irradiation; S10.91XA Abrasion of unspecified part of neck, initial encounter; X58.XXXA Exposure to other specified factors, initial encounter; Y93.9 Activity, unspecified; Y92.009 Unspecified place in unspecified non-institutional (private) residence as the place of occurrence of the external cause; L89.106 Pressure-induced deep tissue damage of unspecified part of back; L89.156 Pressure-induced deep tissue damage of sacral region; Z20.822 Contact with and (suspected) exposure to COVID-19; F02.80 Dementia in other diseases classified elsewhere, unspecified severity, without behavioral disturbance, psychotic disturbance, mood disturbance, and anxiety; G30.9 Alzheimer's disease, unspecified; I49.9 Cardiac arrhythmia, unspecified; Z87.440 Personal history of urinary (tract) infections
CPT/HCPCS: 36415; 36569; 71045-TC; 76770-TC; 80048-TC; 80061-TC; 80076-TC; 81001; 82272-TC; 82533; 82570-TC; 82728-TC; 82962-TC; 83540-TC; 83605-TC; 83735-TC; 84100-TC; 84155-TC; 84300-TC; 84439-TC; 84443-TC; 84484-TC; 85025-TC; 85730-TC; 86706; 86850-TC; 87040-TC; 87081-TC; 87086-TC; 87340; 90935-TC; 92526; 92611-TC; 93307-TC; A4216; C1750; C1751; C9113; C9803; G0378; J0456; J0610; J1720; J1815; J1940; J2060; J2270; J2370; J2760; J3243; J3370; J3490; J7030; J7040; J7050; J7060; P9016; P9047